=== PATIENT | female | born 1940 ===

== ENCOUNTER 2016-11-13 16:06 | Inpatient (IN) | payer MEDICARE, OTHER ==
--- NOTE | 2016-11-13 16:54 | RAD ---
HISTORY: routine COMPARISON: No prior. FINDINGS: LUNGS: Suspect minor bibasilar atelectasis PLEURA: No significant pleural effusion identified, no pneumothorax apparent. CARDIOVASCULAR: Heart size appears upper limits of normal OSSEOUS STRUCTURES: Minor multilevel degenerative spondylosis of the thoracic spine VISUALIZED UPPER ABDOMEN: Metallic clips right upper quadrant of the abdomen consistent with prior cholecystectomy OTHER FINDINGS: None. IMPRESSION: Suspect minor bibasilar atelectasis.
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
[2016-11-13 18:06] LABS: BASO # 0.1 K/uL (0.0-0.2); BASO % 0.7 % (0.0-2.0); EOS # 0.3 K/uL (0.0-0.7); EOS % 3.2 % (0.0-4.0); HEMOGLOBIN 13.8 g/dL (12.0-16.0); LYMPH # 2.4 K/uL (1.0-4.3); LYMPH % 27.9 % (20.0-40.0); MEAN CELL VOLUME 85.3 fl (81.0-99.0); MEAN CORPUSCULAR HEMOGLOBIN 27.7 pg (27.0-31.0); MEAN CORPUSCULAR HGB CONC 32.5 g/dL (33.0-37.0); MEAN PLATELET VOLUME 7.9 fl (7.2-11.7); MONO # 0.7 K/uL (0.0-0.8); MONO % 7.7 % (0.0-10.0); NEUT # 5.1 K/uL (1.8-7.0); NEUT % 60.5 % (50.0-75.0); RBC 4.97 Mil/uL (3.80-5.20); RED CELL DISTRIBUTION WIDTH 15.6 % (11.5-14.5); WHITE BLOOD COUNT 8.5 K/uL (4.8-10.8)
[2016-11-13 18:16] LABS: BARBITURATES, UR NEGATIVE (NEGATIVE); BENZODIAZEPINES, UR POSITIVE (NEGATIVE); OPIATES, UR NEGATIVE (NEGATIVE); PHENCYCLIDINE, UR NEGATIVE (NEGATIVE)
[2016-11-13 18:23] LABS: ALB/GLOB RATIO 1.1 (1.0-2.1); ALBUMIN 4.1 g/dL (3.5-5.0); ALT/SGPT 33 U/L (9-52); AST/SGOT 24 U/L (14-36); BLOOD UREA NITROGEN 14 mg/dl (7-17); CALCIUM 9.1 mg/dL (8.4-10.2); GFR AFRICAN-AMERICAN > 60; GFR NON-AFRICAN AMERICAN > 60; MAGNESIUM 2.1 MG/DL (1.6-2.3)
[2016-11-13 18:39] LABS: SALICYLATE < 1.0 mg/dl
[2016-11-13 18:42] LABS: ACETAMINOPHEN < 10.0 ug/ml (10.0-30.0)
[2016-11-13] MEDS ORDERED: Magnesium Hydroxide Susp 30 ml UD PO PRN (21:45)
[2016-11-13] MEDS ORDERED: Alum-Mag Hydrox-Simethicone Susp (30 mL) PO PRN (21:45)
[2016-11-13] MEDS ORDERED: IPRATROPIUM PO PRN (22:01)
[2016-11-13] MEDS ORDERED: DiphenhydrAMINE 50 mg/ml Inj IM PRN (22:04)
[2016-11-14 05:15] LABS: SQUAMOUS EPITHIAL 1 /hpf (0-5); URINE BACTERIA RARE (<OCC); URINE BILIRUBIN NEGATIVE (NEGATIVE); URINE BLOOD NEGATIVE (NEGATIVE); URINE CLARITY SLIGHTY-CLOUDY (Clear); URINE COLOR YELLOW (YELLOW); URINE GLUCOSE (UA) NEG (Normal); URINE LEUKOCYTE ESTERASE TRACE Leu/uL (Negative); URINE NITRATE NEGATIVE (NEGATIVE); URINE PROTEIN NEGATIVE (NEGATIVE); URINE UROBILINOGEN 0.2-1.0 mg/dL (0.2-1.0)
[2016-11-14 07:33] LABS: IRON 73 ug/dL (37-170)
[2016-11-14 07:44] LABS: % IRON SATURATION 25 % (20-55); TOTAL IRON BINDING CAPACITY 293 ug/dL (250-450)
[2016-11-14 07:51] LABS: T4 8.37 ug/dl (5.5-11.0)
[2016-11-14 08:09] LABS: FERRITIN 54.9 ng/mL
[2016-11-14] MEDS: Metoprolol Succinate 100 mg XL Tab PO SCH (08:14)
--- NOTE | 2016-11-14 09:28 | CARD ---
APPROVED REPORT EKG Measurement Heart [id number] <Conclusion> Sinus bradycardia Otherwise normal ECG
[2016-11-14 13:24] LABS: FOLATE 10.2 ng/mL
--- NOTE | 2016-11-14 13:57 | CP.PCM.CON ---
History of Present Illness - History of Present Illness History of Present Illness: 76 yo female with history of Dementia, HTN, Asthma and Depression admitted to psyche unit because of aggressive behaviour and suicidal ideation. Review of Systems - Review of Systems All systems: reviewed and no additional remarkable complaints except (aside from those mentioned above, 12 point system review were negative by me) Past Patient History - Tetanus Immunizations Tetanus Immunization: Unknown - Past Social History Smoking Status: Heavy Smoker > 10 Cigarettes Daily Alcohol: None Drugs: Denies Home Situation {Lives}: With Family - CARDIAC Hx Cardiac Disorders: No Hx Hypertension: Yes - PULMONARY Hx Asthma: Yes Hx Tuberculosis: No - NEUROLOGICAL Hx Alzheimer's Disease: Yes HX Cerebrovascular Accident: No Hx Seizures: No - RENAL Hx Chronic Kidney Disease: No - ENDOCRINE/METABOLIC Hx Endocrine Disorders: No - HEMATOLOGICAL/ONCOLOGICAL Hx Cancer: No Hx Human Immunodeficiency Virus (HIV): No - INTEGUMENTARY Hx Dermatological Problems: No - MUSCULOSKELETAL/RHEUMATOLOGICAL Hx Musculoskeletal Disorders: No Hx Arthritis: Yes Hx Falls: No - GASTROINTESTINAL Hx Gastrointestinal Disorders: No - GENITOURINARY/GYNECOLOGICAL Hx Sexually Transmitted Disorders: No - PSYCHIATRIC Hx Anxiety: Yes Hx Depression: Yes Hx Substance Use: No - SURGICAL HISTORY Hx Cholecystectomy: Yes - ANESTHESIA Hx Anesthesia: No Hx Anesthesia Reactions: No Hx Malignant Hyperthermia: No Has any member of the family had a problem w/ anesthesia?: No Meds Allergies/Adverse Reactions: Allergies Allergy/AdvReac Type Severity Reaction Status Date / Time Penicillins Allergy RASH Verified 06/30/16 15:23 - Medications Medications: Current Medications Acetaminophen (Tylenol 325mg Tab) 650 mg PO Q4 PRN PRN Reason: Pain, moderate (4-7) Al Hydrox/Mg Hydrox/Simethicone (Maalox Plus 30 Ml) 30 ml PO Q4 PRN PRN Reason: Dyspepsia Diphenhydramine HCl (Benadryl) 25 mg IM Q6 PRN PRN Reason: ANXIETY/AGITATION Diphenhydramine HCl (Benadryl) 25 mg PO Q6 PRN PRN Reason: ANXIETY/AGITATION Home Med (Ipratropium [Atrovent Hfa]) 200 puff PO PRN PRN PRN Reason: Wheezing Lorazepam (Ativan) 0.5 mg PO Q6 PRN PRN Reason: Anixety/Agitation Stop: 11/27/16 21:46 Last Admin: 11/14/16 12:52 Dose: 0.5 mg Lorazepam (Ativan) 0.5 mg PO HS PRN PRN Reason: Insomnia Stop: 11/27/16 21:46 Magnesium Hydroxide (Milk Of Magnesia) 30 ml PO HS PRN PRN Reason: Constipation Metoprolol Succinate (Toprol Xl) 100 mg PO DAILY [facility] Last Admin: 11/14/16 08:14 Dose: 100 mg Nicotine (Nicoderm Cq) 1 patch TD DAILY [facility] Last Admin: 11/14/16 08:13 Dose: 1 patch Physical Exam - Constitutional Appears: No Acute Distress - Head Exam Head Exam: ATRAUMATIC - Eye Exam Eye Exam: absent: Scleral icterus - ENT Exam ENT Exam: Mucous Membranes Moist - Neck Exam Neck exam: Negative for: Meningismus - Respiratory Exam Respiratory Exam: absent: Rhonchi, Wheezes, Respiratory Distress - Cardiovascular Exam Cardiovascular Exam: REGULAR RHYTHM, +S1, +S2 - GI/Abdominal Exam GI & Abdominal Exam: Soft. absent: Tenderness - Rectal Exam Rectal Exam: Deferred - Neurological Exam Neurological exam: Alert, Oriented x3 - Psychiatric Exam Psychiatric exam: Depressed - Skin Skin Exam: Dry, Intact Results - Vital Signs Recent Vital Signs: Last Vital Signs Temp 97.1 F L 11/14/16 05:26 Pulse 50 L 11/14/16 08:14 Resp 18 11/14/16 05:26 BP 137/63 11/14/16 08:14 Pulse Ox 95 11/13/16 21:51 - Labs Result Diagrams: 11/13/16 17:50 11/13/16 17:50 Labs: Laboratory Results - last 24 hr 11/14/16 11/14/16 11/14/16 05:02 07:02 07:02 Hemoglobin A1c 6.3 Iron TIBC % Saturation Ferritin 54.9 Triglycerides 154 H Cholesterol 225 H LDL Cholesterol Direct 156 H HDL Cholesterol 46 Vitamin B12 375 Folate 10.2 Free T4 Thyroxine (T4) 8.37 TSH 3rd Generation 1.70 Urine Color Yellow Urine Clarity Slighty-cloudy Urine pH 6.0 Ur Specific Driscoll 1.011 Urine Protein Negative Urine Glucose (UA) Neg Urine Ketones Negative Urine Blood Negative Urine Nitrate Negative Urine Bilirubin Negative Urine Urobilinogen 0.2-1.0 Ur Leukocyte Esterase Trace Urine RBC (Auto) 1 Urine Microscopic WBC 3 Ur Squamous Epith Cells 1 Urine Bacteria Rare 11/14/16 11/14/16 07:02 07:02 Hemoglobin A1c Iron 73 TIBC 293 % Saturation 25 Ferritin Triglycerides Cholesterol LDL Cholesterol Direct HDL Cholesterol Vitamin B12 Folate Free T4 1.14 Thyroxine (T4) TSH 3rd Generation Urine Color Urine Clarity Urine pH Ur Specific Driscoll Urine Protein Urine Glucose (UA) Urine Ketones Urine Blood Urine Nitrate Urine Bilirubin Urine Urobilinogen Ur Leukocyte Esterase Urine RBC (Auto) Urine Microscopic WBC Ur Squamous Epith Cells Urine Bacteria Assessment & Plan (1) Suicidal ideations Status: Acute Comment: psyche is managing (2) Asthma with COPD Status: Chronic Comment: asymptomatic. continue Advair and Atrovent. Duoneb q 4hrs prn for SOB (3) HTN (hypertension) Status: Chronic Comment: BP controlled. continue Metoprolol
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
[2016-11-15] MEDS: Fluticasone-Salmeterol 250-50mcg Diskus INH SCH ×3 (01:48→21:27)
[2016-11-15] MEDS: Metoprolol Succinate 100 mg XL Tab PO SCH (09:00)
[2016-11-15] MEDS ORDERED: Ipratropium 0.02% Inhal Soln (0.5 mg/2.5 ml) UD IH PRN (16:15)
--- NOTE | 2016-11-15 16:41 | PCM.PYCHPN ---
Psychiatric Progress Note - Psychiatric Progress Note Patient seen today, length of contact: chart reviewed case discussed with team 35 min Patient Chief Complaint: get nervous so what Problems Identified/Issues Discussed: alteration in mood, alteration in cognition, alteration in self care Medical Problems: per chart Diagnostic Results: per psychiatry per medicine per nursing per social work per recreational therapy DSM 5 Symptoms Update: irritability, changes in sleep, changes in appetite Medication Change: Yes (stop lexapro, start mirtazepine7.5mghs,stop hydroxyzine pamoate,[id number] ) Medical Record Reviewed: Yes Mental Status Examination - Cognitive Function Orientation: Person Attention: Poor Concentration: Poor Association: Loose Fund of Knowledge: Poor Decription of patient's judgement and insights: impaired - Mood Mood: Depressed, Anxious - Affect Affect: Constricted - Speech Additional comments: varied - Formal Thought Process Formal Thought Process: Paranoia, Flight of ideas - Homicidal Ideation Homicidal Ideation: Yes Goal/Treatment Plan - Goal/Treatment Plan Need for Continued Stay: Remain at risks for inpatient hospitalization, Severe functional impairment Progress Toward Problem(s) and Goals/Treatment Plan: inpt milieu vital signs and clinical observation per clinical status: pt is to remain on 1 to 1 for safety milieu therapy case discussed with dr meehan: remeron 7.5mg po hs, stop lexapro 5mg, Dr. Meehan suggested possible sub acute rehab at [facility] Case discussed with POA: Daughter/pinky access to [facility] speaking staff prn discharge planning in progress Estimated Date of D/C: 11/22/16 - Smoking Cessation Smoking Cessation Initiated: Yes
[2016-11-16] MEDS: Fluticasone-Salmeterol 250-50mcg Diskus INH SCH ×2 (09:38→21:06)
[2016-11-16] MEDS: Metoprolol Succinate 100 mg XL Tab PO SCH (09:39)
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
[2016-11-17 06:06] VITALS: O2SAT 98
[2016-11-17] MEDS: Metoprolol Succinate 100 mg XL Tab PO SCH (08:49)
[2016-11-17] MEDS: Fluticasone-Salmeterol 250-50mcg Diskus INH SCH ×2 (08:50→21:04)
--- NOTE | 2016-11-17 13:12 | PCM.PYCHPN ---
Psychiatric Progress Note - Psychiatric Progress Note Patient seen today, length of contact: discussed with team Patient Chief Complaint: no c/o Problems Identified/Issues Discussed: pt with no acute changes overnight. no c/o medication side effects. she is confused. Medication Change: No Medical Record Reviewed: Yes Mental Status Examination - Cognitive Function Orientation: Person, Place Attention: Poor Concentration: Poor Association: Loose Fund of Knowledge: Poor - Mood Mood: Depressed, Anxious - Affect Affect: Constricted - Formal Thought Process Formal Thought Process: Paranoia, Flight of ideas - Suicidal Ideation Suicidal Ideation: No - Homicidal Ideation Homicidal Ideation: No Goal/Treatment Plan - Goal/Treatment Plan Need for Continued Stay: Remain at risks for inpatient hospitalization, Severe functional impairment Progress Toward Problem(s) and Goals/Treatment Plan: dementia will continue current treatment per primary team Estimated Date of D/C: 11/22/16 - Smoking Cessation Smoking Cessation Initiated: No
[2016-11-18] MEDS: Fluticasone-Salmeterol 250-50mcg Diskus INH SCH ×2 (08:50→21:01)
[2016-11-18] MEDS: Metoprolol Succinate 100 mg XL Tab PO SCH (08:51)
--- NOTE | 2016-11-18 10:44 | PCM.PYCHPN ---
Psychiatric Progress Note - Psychiatric Progress Note Patient seen today, length of contact: discussed with team Patient Chief Complaint: im not in the hospital Problems Identified/Issues Discussed: pt with no acute changes overnight. she states she doesn't sleep. she is on 1:1 for safety. no c/o medication side effects. she is confused. Medication Change: Yes Medical Record Reviewed: Yes Mental Status Examination - Cognitive Function Orientation: Person, Place Memory: Intact Attention: Poor Concentration: Poor Association: Loose Fund of Knowledge: Poor Decription of patient's judgement and insights: variable - Mood Mood: Depressed, Anxious - Affect Affect: Constricted - Formal Thought Process Formal Thought Process: Paranoia, Flight of ideas - Suicidal Ideation Suicidal Ideation: No - Homicidal Ideation Homicidal Ideation: No Goal/Treatment Plan - Goal/Treatment Plan Need for Continued Stay: Remain at risks for inpatient hospitalization, Severe functional impairment Progress Toward Problem(s) and Goals/Treatment Plan: dementia will continue current treatment per primary team will inc. remeron to address insomnia Estimated Date of D/C: 11/22/16
[2016-11-19] MEDS: Fluticasone-Salmeterol 250-50mcg Diskus INH SCH ×2 (08:11→21:01)
[2016-11-19] MEDS: Metoprolol Succinate 100 mg XL Tab PO SCH (08:14)
--- NOTE | 2016-11-19 12:22 | PCM.PYCHPN ---
Psychiatric Progress Note - Psychiatric Progress Note Patient seen today, length of contact: discussed with team Patient Chief Complaint: its ok, i'm just here Problems Identified/Issues Discussed: pt with no complaints currently. she states she doesn't sleep, but did sleep 4 hours last night.. she is on 1:1 for safety. no c/o medication side effects. she is confused. Medication Change: Yes Medical Record Reviewed: Yes Mental Status Examination - Cognitive Function Orientation: Person, Place Memory: Intact Attention: Poor Concentration: Poor Association: Loose Fund of Knowledge: Poor Decription of patient's judgement and insights: variable - Mood Mood: Depressed, Anxious - Affect Affect: Constricted - Formal Thought Process Formal Thought Process: Paranoia, Flight of ideas - Suicidal Ideation Suicidal Ideation: No - Homicidal Ideation Homicidal Ideation: No Goal/Treatment Plan - Goal/Treatment Plan Need for Continued Stay: Remain at risks for inpatient hospitalization, Severe functional impairment Progress Toward Problem(s) and Goals/Treatment Plan: dementia will continue current treatment per primary team will continue remeron to address insomnia- team may increase next week Estimated Date of D/C: 11/22/16
[2016-11-20] MEDS: Metoprolol Succinate 100 mg XL Tab PO SCH (08:59)
--- NOTE | 2016-11-20 10:50 | PCM.PYCHPN ---
Psychiatric Progress Note - Psychiatric Progress Note Patient seen today, length of contact: DUPLICATE NOTE ENTERED IN ERROR- SEE OTHER NOTE Medication Change: Yes Medical Record Reviewed: Yes Mental Status Examination - Cognitive Function Orientation: Person, Place Memory: Intact Attention: Poor Concentration: Poor Association: Loose Fund of Knowledge: Poor - Mood Mood: Depressed, Anxious - Affect Affect: Constricted - Formal Thought Process Formal Thought Process: Paranoia, Flight of ideas - Suicidal Ideation Suicidal Ideation: No - Homicidal Ideation Homicidal Ideation: No Goal/Treatment Plan - Goal/Treatment Plan Need for Continued Stay: Remain at risks for inpatient hospitalization, Severe functional impairment Estimated Date of D/C: 11/22/16
--- NOTE | 2016-11-20 10:56 | PCM.PYCHPN ---
Psychiatric Progress Note - Psychiatric Progress Note Patient seen today, length of contact: Patient evaluated, case discussed with team, chart reviewed Patient Chief Complaint: "I'm okay" Problems Identified/Issues Discussed: Patient is disoriented to self/location. She does not know why she is in the hospital. She continues to have intermittent periods of mood lability/ irritability. Planer Hand called Marta BUSH [phone], and discussed starting Depakote for mood stabilization. R/b/se reviewed. NO AH/VH/SI/HI. Medication Change: Yes (Start Depakote 125 mg PO BID) Medical Record Reviewed: Yes Mental Status Examination - Cognitive Function Orientation: Person, Place Memory: Intact Attention: Poor Concentration: Poor Association: Loose Fund of Knowledge: Poor Decription of patient's judgement and insights: Poor I/J - Mood Mood: Depressed - Affect Affect: Constricted - Formal Thought Process Formal Thought Process: Loosening of associations Psychotic Thoughts and Behaviors: Denies acute psychosis - Suicidal Ideation Suicidal Ideation: No - Homicidal Ideation Homicidal Ideation: No Goal/Treatment Plan - Goal/Treatment Plan Need for Continued Stay: Remain at risks for inpatient hospitalization, Severe functional impairment Progress Toward Problem(s) and Goals/Treatment Plan: Dementia w/ Behavioral Disturbances; Mood Disorder NOS -Continue Remeron 15 mg PO HS -Start Depakote 125 mg PO BID -Disposition planning -Individual and group therapy -Case discussed with ELEAZAR Estimated Date of D/C: 11/23/16
[2016-11-20] MEDS: Divalproex 125 mg Sprinkle Capsule PO SCH ×2 (13:25→18:10)
[2016-11-20] MEDS: Fluticasone-Salmeterol 100-50mcg Diskus IH SCH (21:29)
[2016-11-21] MEDS: Metoprolol Succinate 100 mg XL Tab PO SCH (09:11)
[2016-11-21] MEDS: Divalproex 125 mg Sprinkle Capsule PO SCH ×2 (09:11→16:56)
[2016-11-21] MEDS: Fluticasone-Salmeterol 100-50mcg Diskus IH SCH ×2 (09:13→21:09)
--- NOTE | 2016-11-21 09:45 | PCM.PYCHPN ---
Psychiatric Progress Note - Psychiatric Progress Note Patient seen today, length of contact: Patient evaluated, case discussed with team, chart reviewed, 35 min Patient Chief Complaint: "I'm okay" Problems Identified/Issues Discussed: She has poor insight into her dementia, despite the junior underwriter explaining her diagnosis with the patient. She does not know why she is in the hospital. She continues to have intermittent periods of mood lability/irritability, but is redirectable. No adverse effects to Depakote noted. NO AH/VH/SI/HI. Medication Change: No Medical Record Reviewed: Yes Consults ordered or reviewed: Physical therapy evaluation ordered Mental Status Examination - Cognitive Function Orientation: Person, Place Memory: Intact Attention: Poor Concentration: Poor Association: Loose Fund of Knowledge: Poor Decription of patient's judgement and insights: Poor I/J - Mood Mood: Depressed - Affect Affect: Constricted - Speech Speech: Appropriate - Formal Thought Process Formal Thought Process: Loosening of associations Psychotic Thoughts and Behaviors: NO AH/VH/paranoia - Suicidal Ideation Suicidal Ideation: No - Homicidal Ideation Homicidal Ideation: No Goal/Treatment Plan - Goal/Treatment Plan Need for Continued Stay: Remain at risks for inpatient hospitalization, Severe functional impairment Progress Toward Problem(s) and Goals/Treatment Plan: Dementia w/ Behavioral Disturbances; Mood Disorder NOS -Continue Remeron 15 mg PO HS -Continue Depakote 125 mg PO BID -Disposition planning -Individual and group therapy -Case discussed with POBaljinder Estimated Date of D/C: 11/23/16
[2016-11-22] MEDS: Divalproex 125 mg Sprinkle Capsule PO SCH ×3 (08:17→16:39)
[2016-11-22] MEDS: Fluticasone-Salmeterol 100-50mcg Diskus IH SCH ×2 (08:17→21:12)
[2016-11-22] MEDS: Metoprolol Succinate 100 mg XL Tab PO SCH (08:18)
--- NOTE | 2016-11-22 08:50 | PCM.PYCHPN ---
Psychiatric Progress Note - Psychiatric Progress Note Patient seen today, length of contact: Patient evaluated, case discussed with team, chart reviewed, 35 min Patient Chief Complaint: "I'm okay" Problems Identified/Issues Discussed: She has poor insight into her dementia. She continues to be irritable towards staff, restless and pacing the hallways at times. She does not know why she is in the hospital. She is not currently threatening or violent and is redirectable. No adverse effects to Depakote noted. NO AH/VH/SI/HI. Medication Change: Yes (Increase Depakote to 250 mg PO BID) Medical Record Reviewed: Yes Mental Status Examination - Cognitive Function Orientation: Person, Place Memory: Intact Attention: Poor Concentration: Poor Association: Loose Fund of Knowledge: Poor Decription of patient's judgement and insights: Poor I/J - Mood Mood: Depressed - Affect Affect: Constricted - Speech Speech: Appropriate - Formal Thought Process Formal Thought Process: Loosening of associations Psychotic Thoughts and Behaviors: NO AH/VH/paranoia - Suicidal Ideation Suicidal Ideation: No - Homicidal Ideation Homicidal Ideation: No Goal/Treatment Plan - Goal/Treatment Plan Need for Continued Stay: Remain at risks for inpatient hospitalization, Severe functional impairment Progress Toward Problem(s) and Goals/Treatment Plan: Dementia w/ Behavioral Disturbances; Mood Disorder NOS -Continue Remeron 15 mg PO HS -Increase Depakote to 250 mg PO BID -Disposition planning -Individual and group therapy -Case discussed with POA Estimated Date of D/C: 11/24/16
--- NOTE | 2016-11-23 07:51 | PCM.PYCHPN ---
Psychiatric Progress Note - Psychiatric Progress Note Patient seen today, length of contact: Patient evaluated, case discussed with team, chart reviewed, 35 min Patient Chief Complaint: "I'm okay" Problems Identified/Issues Discussed: Patient has been in good behavioral control. No significant events. No agitation or aggression. Patient denies depression or anxiety. She is calm, cooperative and spends most of her day engaged in word puzzles. Patient has poor insight into her dementia and does not understand why she is in the hospital. No adverse effects to Depakote noted. NO AH/VH/SI/HI. Medication Change: No Medical Record Reviewed: Yes Mental Status Examination - Cognitive Function Orientation: Person, Place Memory: Intact Attention: Poor Concentration: Poor Association: Loose Fund of Knowledge: Poor Decription of patient's judgement and insights: Poor I/J - Mood Mood: Neutral - Affect Affect: Constricted - Speech Speech: Appropriate - Formal Thought Process Formal Thought Process: Loosening of associations Psychotic Thoughts and Behaviors: NO AH/VH/paranoia - Suicidal Ideation Suicidal Ideation: No - Homicidal Ideation Homicidal Ideation: No Goal/Treatment Plan - Goal/Treatment Plan Need for Continued Stay: Severe functional impairment Progress Toward Problem(s) and Goals/Treatment Plan: Dementia w/ Behavioral Disturbances; Mood Disorder NOS; Patient is psychiatrically stable for referral to prison. -Continue Remeron 15 mg PO HS -Continue Depakote 250 mg PO BID; Check VPA tomorrow -Disposition planning- referral to prison -Individual and group therapy -Case discussed with POA Estimated Date of D/C: 11/24/16 - Smoking Cessation Smoking Cessation Initiated: Yes
[2016-11-23] MEDS: Divalproex 125 mg Sprinkle Capsule PO SCH ×2 (09:05→16:48)
[2016-11-23] MEDS: NICOTINE 2 MG GUM PO PRN (09:05)
[2016-11-23] MEDS: Fluticasone-Salmeterol 100-50mcg Diskus IH SCH ×2 (09:05→21:09)
[2016-11-23] MEDS: Metoprolol Succinate 100 mg XL Tab PO SCH (09:06)
--- NOTE | 2016-11-24 08:27 | PCM.PYCHPN ---
Psychiatric Progress Note - Psychiatric Progress Note Patient seen today, length of contact: Patient evaluated, case discussed with team, chart reviewed, 35 min Patient Chief Complaint: "I'm okay" Problems Identified/Issues Discussed: No significant events. Patient has been in good behavioral control. No agitation or aggression. Patient denies depression or anxiety. Patient has poor insight into her dementia and does not understand why she is in the hospital. No adverse effects to Depakote noted. NO AH/VH/SI/HI. Diagnostic Results: VPA 38.5 on 11/24/16 Medication Change: No Medical Record Reviewed: Yes Mental Status Examination - Cognitive Function Orientation: Person, Place Memory: Intact Attention: Poor Concentration: Poor Association: Loose Fund of Knowledge: Poor Decription of patient's judgement and insights: Poor I/J - Mood Mood: Neutral - Affect Affect: Constricted - Speech Speech: Appropriate - Formal Thought Process Formal Thought Process: Loosening of associations Psychotic Thoughts and Behaviors: NO AH/VH/paranoia - Suicidal Ideation Suicidal Ideation: No - Homicidal Ideation Homicidal Ideation: No Goal/Treatment Plan - Goal/Treatment Plan Need for Continued Stay: Severe functional impairment Progress Toward Problem(s) and Goals/Treatment Plan: Dementia w/ Behavioral Disturbances; Mood Disorder NOS; Patient is psychiatrically stable for referral to half-way. -Continue Remeron 15 mg PO HS -Continue Depakote 250 mg PO BID; VPA 38.5 on 11/24/16 -Disposition planning- referral to half-way -Individual and group therapy -Case discussed with POA Estimated Date of D/C: 11/27/16 - Smoking Cessation Smoking Cessation Initiated: Yes
[2016-11-24] MEDS: Fluticasone-Salmeterol 100-50mcg Diskus IH SCH ×2 (08:48→21:32)
[2016-11-24] MEDS: Divalproex 125 mg Sprinkle Capsule PO SCH ×2 (08:49→17:00)
[2016-11-24] MEDS: Metoprolol Succinate 100 mg XL Tab PO SCH (08:53)
[2016-11-24] MEDS: NICOTINE 2 MG GUM PO PRN (09:00)
--- NOTE | 2016-11-25 08:32 | PCM.PYCHPN ---
Psychiatric Progress Note - Psychiatric Progress Note Patient seen today, length of contact: Patient evaluated, case discussed with team, chart reviewed, 35 min Patient Chief Complaint: "I'm okay" Problems Identified/Issues Discussed: No significant events overnight. Patient has been in good behavioral control. No agitation or aggression. Patient denies depression or anxiety. Patient has poor insight into her dementia and does not understand why she is in the hospital. No adverse effects to Depakote noted. NO AH/VH/SI/HI. Diagnostic Results: VPA 38.5 on 11/24/16 Medication Change: No Medical Record Reviewed: Yes Mental Status Examination - Cognitive Function Orientation: Person, Place Memory: Intact Attention: Poor Concentration: Poor Association: Loose Fund of Knowledge: Poor Decription of patient's judgement and insights: Poor I/J - Mood Mood: Neutral - Affect Affect: Constricted - Speech Speech: Appropriate - Formal Thought Process Formal Thought Process: Loosening of associations Psychotic Thoughts and Behaviors: NO AH/VH/paranoia - Suicidal Ideation Suicidal Ideation: No - Homicidal Ideation Homicidal Ideation: No Goal/Treatment Plan - Goal/Treatment Plan Need for Continued Stay: Severe functional impairment Progress Toward Problem(s) and Goals/Treatment Plan: Dementia w/ Behavioral Disturbances; Mood Disorder NOS; Patient is psychiatrically stable for referral to [facility]. -Continue Remeron 15 mg PO HS -Continue Depakote 250 mg PO BID; VPA 38.5 on 11/24/16 -Disposition planning- referral to [facility] -Individual and group therapy -Case discussed with POA Estimated Date of D/C: 11/27/16
[2016-11-25] MEDS: Divalproex 125 mg Sprinkle Capsule PO SCH ×2 (09:14→16:48)
[2016-11-25] MEDS: Fluticasone-Salmeterol 100-50mcg Diskus IH SCH ×2 (09:14→21:00)
[2016-11-25] MEDS: Metoprolol Succinate 100 mg XL Tab PO SCH (09:16)
--- NOTE | 2016-11-25 19:22 | CP.PCM.HP ---
History of Present Illness - History of Present Illness History of Present Illness: 76 y/o female with h/o htn, asthma,dementia and htn admitted to psych unit due to suicidal thoughts and aggressive behavior Present on Admission - Present on Admission Any Indicators Present on Admission: Yes Review of Systems - Review of Systems All systems: reviewed and no additional remarkable complaints except - Constitutional Constitutional: As Per HPI - EENT Eyes: As Per HPI Ears: As Per HPI Nose/Mouth/Throat: As Per HPI - Breasts Breasts: As Per HPI - Cardiovascular Cardiovascular: As Per HPI - Respiratory Respiratory: As Per HPI - Gastrointestinal Gastrointestinal: As Per HPI - Integumentary Integumentary: As Per HPI. absent: Acne, Alopecia, Bleeding Lesions, Change in Hair, Change in Nails, Change in Pigmentation, Changing Lesions, Dry Skin, Erythema, Furuncle, Hirsutism, Lesions, New Lesions, Non-Healing Lesions, Photosensitivity, Pruritus, Rash, Skin Pain, Skin Ulcer, Sores, Striae, Swelling , Unusual Bruising, Wounds, Jaundice, Other - Neurological Neurological: As Per HPI. absent: Abnormal Gait, Abnormal Hearing, Abnormal Movements, Abnormal Speech, Behavioral Changes, Burning Sensations, Confusion, Convulsions, Disequilibrium, Dizziness, Numbness, Focal Weakness, Frequent Falls , Headaches, Lack of Coordination, Loss of Vision, Memory Loss, Paresthesias, Radicular Pain, Restless Legs, Sensory Deficit, Syncope, Tingling, Tremor, Vertigo, Weakness, Other Visual Disturbances, Other Past Patient History - Infectious Disease Hx of Infectious Diseases: None - Tetanus Immunizations Tetanus Immunization: Unknown - Past Medical History & Family History Past Medical History?: Yes - Past Social History Smoking Status: Heavy Smoker > 10 Cigarettes Daily Alcohol: None Drugs: Denies Home Situation {Lives}: With Family - CARDIAC Hx Cardiac Disorders: No Hx Hypertension: Yes - PULMONARY Hx Asthma: Yes Hx Tuberculosis: No - NEUROLOGICAL Hx Alzheimer's Disease: Yes HX Cerebrovascular Accident: No Hx Seizures: No - RENAL Hx Chronic Kidney Disease: No - ENDOCRINE/METABOLIC Hx Endocrine Disorders: No - HEMATOLOGICAL/ONCOLOGICAL Hx Cancer: No Hx Human Immunodeficiency Virus (HIV): No - INTEGUMENTARY Hx Dermatological Problems: No - MUSCULOSKELETAL/RHEUMATOLOGICAL Hx Musculoskeletal Disorders: No Hx Arthritis: Yes Hx Falls: No - GASTROINTESTINAL Hx Gastrointestinal Disorders: No - GENITOURINARY/GYNECOLOGICAL Hx Sexually Transmitted Disorders: No - PSYCHIATRIC Hx Anxiety: Yes Hx Depression: Yes Hx Substance Use: No - SURGICAL HISTORY Hx Cholecystectomy: Yes - ANESTHESIA Hx Anesthesia: No Hx Anesthesia Reactions: No Hx Malignant Hyperthermia: No Has any member of the family had a problem w/ anesthesia?: No Meds Home Medications: Home Medication List Medication Instructions Recorded Confirmed Type Fluticasone/Salmeterol [Advair 1 each IH DAILY #1 blst.w.dev 11/20/16 Rx 250-50 Diskus] Allergies/Adverse Reactions: Allergies Allergy/AdvReac Type Severity Reaction Status Date / Time Penicillins Allergy RASH Verified 06/30/16 15:23 Physical Exam - Constitutional Appears: Well - Head Exam Head Exam: ATRAUMATIC, NORMAL INSPECTION - Eye Exam Eye Exam: Normal appearance Pupil Exam: NORMAL ACCOMODATION - ENT Exam ENT Exam: Mucous Membranes Moist - Neck Exam Neck exam: Positive for: Full Rom - Respiratory Exam Respiratory Exam: Clear to Auscultation Bilateral, NORMAL BREATHING PATTERN - Cardiovascular Exam Cardiovascular Exam: REGULAR RHYTHM - GI/Abdominal Exam GI & Abdominal Exam: Normal Bowel Sounds, Soft - Extremities Exam Extremities exam: Positive for: normal inspection Results - Vital Signs Recent Vital Signs: Last Vital Signs Temp 97.1 F L 11/25/16 15:44 Pulse 63 11/25/16 15:44 Resp 19 11/25/16 15:44 BP 167/72 H 11/25/16 15:44 Pulse Ox 98 11/17/16 06:00 - Labs Result Diagrams: 11/13/16 17:50 11/13/16 17:50 Assessment & Plan - Assessment and Plan (Free Text) Assessment: 76 y/o female with history of htn, asthma, dementia, depression 1. HTN: controlled cont same meds 2. Asthma cont nebs pt stabole 3. dementia/depression cont same treatment.
[2016-11-26] MEDS: Fluticasone-Salmeterol 100-50mcg Diskus IH SCH ×2 (08:44→21:13)
--- NOTE | 2016-11-26 08:44 | PCM.PYCHPN ---
Psychiatric Progress Note - Psychiatric Progress Note Patient seen today, length of contact: Patient evaluated, case discussed with team, chart reviewed, 35 min Patient Chief Complaint: "I'm okay" Problems Identified/Issues Discussed: No significant events. Patient has been in good behavioral control. No agitation or aggression. Patient denies depression or anxiety. Patient has poor insight into her dementia and does not understand why she is in the hospital. No adverse effects to Depakote noted. NO AH/VH/SI/HI. Diagnostic Results: VPA 38.5 on 11/24/16 Medication Change: No Medical Record Reviewed: Yes Mental Status Examination - Cognitive Function Orientation: Person, Place Memory: Intact Attention: Poor Concentration: Poor Association: Loose Fund of Knowledge: Poor Decription of patient's judgement and insights: Poor I/J - Mood Mood: Neutral - Affect Affect: Constricted - Speech Speech: Appropriate - Formal Thought Process Formal Thought Process: Loosening of associations Psychotic Thoughts and Behaviors: NO AH/VH/paranoia - Suicidal Ideation Suicidal Ideation: No - Homicidal Ideation Homicidal Ideation: No Goal/Treatment Plan - Goal/Treatment Plan Need for Continued Stay: Severe functional impairment Progress Toward Problem(s) and Goals/Treatment Plan: Dementia w/ Behavioral Disturbances; Mood Disorder NOS; Patient is psychiatrically stable for referral to [facility]. -Continue Remeron 15 mg PO HS -Continue Depakote 250 mg PO BID; VPA 38.5 on 11/24/16 -Disposition planning- referral to [facility] -Individual and group therapy -Case discussed with POA Estimated Date of D/C: 11/27/16 - Smoking Cessation Smoking Cessation Initiated: Yes
[2016-11-26] MEDS: Divalproex 125 mg Sprinkle Capsule PO SCH ×2 (08:45→16:24)
[2016-11-26] MEDS: Metoprolol Succinate 100 mg XL Tab PO SCH (08:47)
--- NOTE | 2016-11-27 08:29 | CP.PCM.PN ---
Subjective - Date & Time of Evaluation Date of Evaluation: 11/27/16 Time of Evaluation: 08:28 - Subjective Subjective: no complaints/distress, no f/c, n/v/d for pepper placement today vs noted Objective - Vital Signs/Intake and Output Vital Signs (last 24 hours): Temp Pulse Resp BP Pulse Ox 97.3 F L 53 L 18 139/75 98 11/27/16 05:51 11/27/16 05:51 11/27/16 05:51 11/27/16 05:51 11/17/16 06:00 - Medications Medications: Current Medications Acetaminophen (Tylenol 325mg Tab) 650 mg PO Q4 PRN PRN Reason: Pain, moderate (4-7) Last Admin: 11/26/16 14:30 Dose: 650 mg Al Hydrox/Mg Hydrox/Simethicone (Maalox Plus 30 Ml) 30 ml PO Q4 PRN PRN Reason: Dyspepsia Diphenhydramine HCl (Benadryl) 25 mg IM Q6 PRN PRN Reason: ANXIETY/AGITATION Diphenhydramine HCl (Benadryl) 25 mg PO Q6 PRN PRN Reason: ANXIETY/AGITATION Last Admin: 11/26/16 14:30 Dose: 25 mg Divalproex Sodium (Depakote Sprinkles) 250 mg PO BID [facility] Last Admin: 11/26/16 16:24 Dose: 250 mg Donepezil HCl (Aricept) 10 mg PO HS [facility] Last Admin: 11/26/16 21:14 Dose: 10 mg Ipratropium [place] (Atrovent) 0.5 mg IH RQ6 PRN PRN Reason: Cough and congestion Magnesium Hydroxide (Milk Of Magnesia) 30 ml PO HS PRN PRN Reason: Constipation Metoprolol Succinate (Toprol Xl) 100 mg PO DAILY [facility] Last Admin: 11/26/16 08:47 Dose: 100 mg Mirtazapine (Remeron) 15 mg PO HS [facility] Last Admin: 11/26/16 21:14 Dose: 15 mg Nicotine (Nicoderm Cq) 1 patch TD DAILY [facility] Last Admin: 11/26/16 08:47 Dose: 1 patch Nicotine Polacrilex (Nicorette Gum) 2 mg PO Q4 PRN PRN Reason: URGE TO SMOKE Last Admin: 11/24/16 09:00 Dose: 2 mg Fluticasone/Salmeterol (Advair Diskus 100/50) 1 puff IH Q12 [facility] Last Admin: 11/26/16 21:13 Dose: 1 puff - Constitutional Appears: Well, Non-toxic, No Acute Distress - Head Exam Head Exam: ATRAUMATIC, NORMAL INSPECTION, NORMOCEPHALIC - Eye Exam Eye Exam: EOMI, Normal appearance, PERRL Pupil Exam: NORMAL ACCOMODATION, PERRL - ENT Exam ENT Exam: Mucous Membranes Moist, Normal Exam - Neck Exam Neck Exam: Full ROM, Normal Inspection. absent: Lymphadenopathy - Respiratory Exam Respiratory Exam: Clear to Ausculation Bilateral, NORMAL BREATHING PATTERN - Cardiovascular Exam Cardiovascular Exam: REGULAR RHYTHM, RRR, +S1, +S2. absent: Murmur - GI/Abdominal Exam GI & Abdominal Exam: Soft, Normal Bowel Sounds. absent: Tenderness - Extremities Exam Extremities Exam: Full ROM, Normal Capillary Refill, Normal Inspection. absent : Joint Swelling, Pedal Edema - Back Exam Back Exam: NORMAL INSPECTION - Neurological Exam Neurological Exam: Alert, Awake, CN II-XII Intact, Normal Gait, Oriented x3 - Psychiatric Exam Psychiatric exam: Normal Affect, Normal Mood - Skin Skin Exam: Dry, Intact, Normal Color, Warm Assessment and Plan - Assessment and Plan (Free Text) Assessment: 1. HTN: controlled cont same meds 2. Asthma cont nebs pt stabole 3. dementia/depression cont same treatment psych meds, interventions, therapies dc to pepper as per psych team
[2016-11-27] MEDS: Metoprolol Succinate 100 mg XL Tab PO SCH (08:54)
[2016-11-27] MEDS: Fluticasone-Salmeterol 100-50mcg Diskus IH SCH ×2 (08:55→21:07)
[2016-11-27] MEDS: Divalproex 125 mg Sprinkle Capsule PO SCH ×2 (08:55→16:45)
--- NOTE | 2016-11-27 09:36 | PCM.PYCHPN ---
Psychiatric Progress Note - Psychiatric Progress Note Patient seen today, length of contact: Patient evaluated, case discussed with team, chart reviewed, 35 min Patient Chief Complaint: "I'm okay" Problems Identified/Issues Discussed: No significant events overnight. Patient denies depression or anxiety. Patient has poor insight into her dementia and does not understand why she is in the hospital. No adverse effects to Depakote noted. NO AH/VH/SI/HI. Diagnostic Results: VPA 38.5 on 11/24/16 Medication Change: No Medical Record Reviewed: Yes Mental Status Examination - Cognitive Function Orientation: Person, Place Memory: Intact Attention: Poor Concentration: Poor Association: Loose Fund of Knowledge: Poor Decription of patient's judgement and insights: Poor I/J - Mood Mood: Neutral - Affect Affect: Constricted - Speech Speech: Appropriate - Formal Thought Process Formal Thought Process: Loosening of associations Psychotic Thoughts and Behaviors: NO AH/VH/paranoia - Suicidal Ideation Suicidal Ideation: No - Homicidal Ideation Homicidal Ideation: No Goal/Treatment Plan - Goal/Treatment Plan Need for Continued Stay: Severe functional impairment Progress Toward Problem(s) and Goals/Treatment Plan: Dementia w/ Behavioral Disturbances; Mood Disorder NOS; pending residential referral. -Continue Remeron 15 mg PO HS -Continue Depakote 250 mg PO BID; VPA 38.5 on 11/24/16 -Disposition planning- referral to residential -Individual and group therapy -Case discussed with POA Estimated Date of D/C: 11/30/16 - Smoking Cessation Smoking Cessation Initiated: Yes
[2016-11-28 06:25] VITALS: TEMP 97.7
--- NOTE | 2016-11-28 08:46 | PCM.PYCHPN ---
Psychiatric Progress Note - Psychiatric Progress Note Patient seen today, length of contact: Patient evaluated, case discussed with team, chart reviewed, 35 min Patient Chief Complaint: "I'm okay" Problems Identified/Issues Discussed: No significant events. Patient denies depression or anxiety. Patient has poor insight into her dementia and does not understand why she is in the hospital. No adverse effects to Depakote noted. NO AH/VH/SI/HI. Diagnostic Results: VPA 38.5 on 11/24/16 Medication Change: No Medical Record Reviewed: Yes Mental Status Examination - Cognitive Function Orientation: Person, Place Memory: Intact Attention: Poor Concentration: Poor Association: Loose Fund of Knowledge: Poor Decription of patient's judgement and insights: Poor I/J - Mood Mood: Neutral - Affect Affect: Constricted - Speech Speech: Appropriate - Formal Thought Process Formal Thought Process: Loosening of associations Psychotic Thoughts and Behaviors: NO AH/VH/paranoia - Suicidal Ideation Suicidal Ideation: No - Homicidal Ideation Homicidal Ideation: No Goal/Treatment Plan - Goal/Treatment Plan Need for Continued Stay: Severe functional impairment Progress Toward Problem(s) and Goals/Treatment Plan: Dementia w/ Behavioral Disturbances; Mood Disorder NOS; patient is psychiatrically stable for fpc placement. -Continue Remeron 15 mg PO HS -Continue Depakote 250 mg PO BID; VPA 38.5 on 11/24/16 -Disposition planning- referral to [facility] -Individual and group therapy -Case discussed with POA Estimated Date of D/C: 11/30/16
[2016-11-28] MEDS: Fluticasone-Salmeterol 100-50mcg Diskus IH SCH ×2 (08:47→21:22)
[2016-11-28] MEDS: Metoprolol Succinate 100 mg XL Tab PO SCH (08:47)
[2016-11-28] MEDS: Divalproex 125 mg Sprinkle Capsule PO SCH ×2 (08:48→16:07)
[2016-11-28 16:14] VITALS: RESP 20
[2016-11-29] MEDS: Fluticasone-Salmeterol 100-50mcg Diskus IH SCH (08:53)
[2016-11-29] MEDS: Divalproex 125 mg Sprinkle Capsule PO SCH (08:54)
[2016-11-29 08:57] VITALS: BP 133/60; PULSE 64
[2016-11-29] MEDS: Metoprolol Succinate 100 mg XL Tab PO SCH (08:57)
--- NOTE | 2016-11-29 09:53 | PCM.PYCHDC ---
Mental Status Examination - Mental Status Examination Orientation: Person, Place Memory: Impaired Mood: Neutral Affect: Broad Speech: Appropriate Attention: Poor Concentration: Poor Association: Loose Fund of Knowledge: Poor Formal Thought Process: Loosening of associations Description of patient's judgement and insight: Poor I/J Psychotic Thoughts and Behaviors: NO AH/VH/paranoia Suicidal Ideation: No Current Homicidal Ideation?: No Discharge Summary - Discharge Note Reason for Hospitalization: Patient admitted for worsening dementia with behavioral disturbances, increase irritability and aggression towards others. Laboratory Data: VPA 38.5 on 11/24/16 Consultations:: List each consultation separately and include: 1. Reason for request. 2. Findings. 3. Follow-up Consultations: Physical therapy consult, medicine consult Summary of Hospital Course include:: 1. Description of specific treatment plan utilized for patients during their course of treatmen. 2. Summarize the time- course for resolution of acute symptoms and/or regressed behaviors. 3. Describe issues identified and worked on during hospitalization. 4. Describe medication utilized. 5. Describe medical problems identified and treated. 6. Reassessment of suicide risk Summary of Hospital Course: Patient admitted to the hospital. She was stabilized on Depakote 250 mg PO BID. She is not acutely agitated or aggressive and her mood is more stable. - Final Diagnosis (DSM 5) Condition upon Discharge: STABLE DSM 5: Dementia with Behavioral Disturbances; Mood Disorder Unspecified Disposition: HOME/ ROUTINE Follow-up Treatment Plan: Dementia w/ Behavioral Disturbances; Mood Disorder NOS; patient is psychiatrically stable for snf placement. -Continue Remeron 15 mg PO HS -Continue Depakote 250 mg PO BID; VPA 38.5 on 11/24/16 -Discharge to snf -Case discussed with POA Discharge >35 min Prescriptions/Medication Reconciliation: Fluticasone/Salmeterol [Advair 250-50 Diskus] 1 each IH DAILY #1 [facility] - Smoking Cessation Smoking Cessation Medication prescribed: Yes - Antipsychotic Medications Pt discharged on 2 or more routine antipsychotic medications: No
== END 2016-11-29 10:30 | disposition home or self-care (01) | DRG 885 ==
LOC: H.ER 16:06 → H.ERHOLD 19:36 → H.STEP 21:15
PROVIDERS: ADMIT Psychiatry & Neurology Psychiatry; ATTEND Psychiatry & Neurology Psychiatry
DX: F39 Unspecified mood [affective] disorder (principal); F02.81 Dementia in other diseases classified elsewhere, unspecified severity, with behavioral disturbance; R45.851 Suicidal ideations; J44.9 Chronic obstructive pulmonary disease, unspecified; I10 Essential (primary) hypertension; J45.909 Unspecified asthma, uncomplicated; F17.210 Nicotine dependence, cigarettes, uncomplicated; G47.00 Insomnia, unspecified; Z91.410 Personal history of adult physical and sexual abuse

== ENCOUNTER 2016-11-29 14:43 | Inpatient (IN) | payer MEDICARE, MEDICAID ==
--- NOTE | 2016-11-29 15:28 | ED PDOC ---
HPI: Psych/Substance Abuse Time Seen by Provider: 11/29/16 15:17 Chief Complaint (Nursing): Psychiatric Evaluation Chief Complaint (Provider): Aggressive behavior History Per: Patient, Other (staff) History/Exam Limitations: no limitations Current Symptoms Are (Timing): Still Present Additional Complaint(s): Pt. was aggressive in alf so sent to the ED. Denies any pain, dyspnea , weakness, dizziness. No fall. Not suicidal or homicidal. Past Medical History Reviewed: Historical Data, Nursing Documentation, Vital Signs - Medical History PMH: Alzheimer's Disease, Anxiety, Arthritis, Asthma, Dementia, Depression, HTN Denies: Diabetes, Hepatitis, HIV, Chronic Kidney Disease, Seizures, Sexually Transmitted Disease - Surgical History Surgical History: Cholecystectomy - Family History Family History: States: Unknown Family Hx - Living Arrangements Living Arrangements: With Family - Social History Current smoker - smoking cessation education provided: No Alcohol: None Drugs: Denies - Home Medications Home Medications: Ambulatory Orders Medication Instructions Recorded Metoprolol Succinate [Toprol XL] 100 mg PO DAILY 11/13/16 Acetaminophen [Tylenol 325mg tab] 650 mg PO Q4H PRN 11/29/16 Acetaminophen [Tylenol 325mg tab] 650 mg PO Q4H PRN 11/29/16 Divalproex [Depakote Sprinkles] 500 mg PO BID 11/29/16 Donepezil [Aricept] 10 mg PO HS tab 11/29/16 Ipratropium 0.02% [Atrovent] 0.5 mg IH RQ6 PRN 11/29/16 LORazepam [Ativan] 1 mg PO Q6H PRN 11/29/16 Lorazepam [Ativan] 1 mg IM Q6H PRN 11/29/16 Magnesium Hydroxide [Milk Of 30 ml PO HS PRN 11/29/16 Magnesia] Mirtazapine [Remeron] 15 mg PO HS tab 11/29/16 Nicotine 7 mg/24 hr [Nicoderm CQ] 1 patch TD DAILY patch 11/29/16 buPROPion XL [Wellbutrin XL] 150 mg PO DAILY 11/29/16 - Allergies Allergies/Adverse Reactions: Allergies Allergy/AdvReac Type Severity Reaction Status Date / Time Penicillins Allergy RASH Verified 11/29/16 14:47 Review of Systems ROS Statement: Except As Marked, All Systems Reviewed And Found Negative Psych: Positive for: Other (aggressive) Physical Exam - Reviewed Nursing Documentation Reviewed: Yes Vital Signs Reviewed: Yes - Physical Exam Appears: Positive for: Non-toxic, No Acute Distress Head Exam: Positive for: ATRAUMATIC, NORMAL INSPECTION, NORMOCEPHALIC Skin: Positive for: Normal Color, Warm, DRY Eye Exam: Positive for: EOMI, Normal appearance, PERRL ENT: Positive for: Normal ENT Inspection Neck: Positive for: Normal, Painless ROM Cardiovascular/Chest: Positive for: Regular Rate, Rhythm Respiratory: Positive for: CNT, Normal Breath Sounds Gastrointestinal/Abdominal: Positive for: Normal Exam, Bowel Sounds, Soft. Negative for: Tenderness Back: Positive for: Normal Inspection. Negative for: L CVA Tenderness Extremity: Positive for: Normal ROM. Negative for: Tenderness, Pedal Edema Neurologic/Psych: Positive for: Alert, Oriented. Negative for: Motor/Sensory Deficits - Progress ED Course And Treament: 1829: Stable. Alert. Crisis wants to observe pt. Pt. needed ativan and restraints for aggressive behavior and psychosis with threat to staff and self. Well known to Dr. Castellanos. Was dc to nursing today from psych. Want to observe pt. in the ED and will re-eval. Dr. Jacob to take over care. Disposition - Clinical Impression Clinical Impression: Dementia - Patient ED Disposition Is Patient to be Admitted: No Counseled Patient/Family Regarding: Diagnosis - Disposition Disposition: Transfer of Care Disposition Time: 18:31 Condition: STABLE Patient Signed Over To: Amy Jacob
--- NOTE | 2016-11-29 19:27 | ED PDOC ---
- Laboratory Results Result Diagrams: 11/29/16 21:42 11/29/16 21:42 - ECG O2 Sat by Pulse Oximetry: 96 - Progress ED Course And Treament: Assumed care from Dr Edwards. Pending psych eval. Medical Decision Making Medical Decision Making: Vital signs are stable. Labs reviewed. In my opinion there are no current acute medical conditions that contraindicate the placement of this patient in a psychiatric unit. Disposition Doctor Will See Patient In The: Hospital Counseled Patient/Family Regarding: Studies Performed, Diagnosis - Clinical Impression Clinical Impression: Dementia - POA Present On Arrival: None - Disposition Disposition: Admitted as In-Patient Disposition Time: 22:57 Condition: FAIR
[2016-11-29 21:51] LABS: BASO # 0.1 K/uL (0.0-0.2); BASO % 0.5 % (0.0-2.0); EOS # 0.2 K/uL (0.0-0.7); EOS % 1.6 % (0.0-4.0); HEMOGLOBIN 13.6 g/dL (12.0-16.0); LYMPH # 2.7 K/uL (1.0-4.3); LYMPH % 18.4 % (20.0-40.0); MEAN CELL VOLUME 85.4 fl (81.0-99.0); MEAN CORPUSCULAR HEMOGLOBIN 27.8 pg (27.0-31.0); MEAN CORPUSCULAR HGB CONC 32.5 g/dL (33.0-37.0); MEAN PLATELET VOLUME 8.9 fl (7.2-11.7); MONO # 1.2 K/uL (0.0-0.8); MONO % 8.2 % (0.0-10.0); NEUT # 10.3 K/uL (1.8-7.0); NEUT % 71.3 % (50.0-75.0); RBC 4.9 Mil/uL (3.80-5.20); RED CELL DISTRIBUTION WIDTH 14.7 % (11.5-14.5); WHITE BLOOD COUNT 14.4 K/uL (4.8-10.8)
[2016-11-29 21:59] LABS: ALB/GLOB RATIO 1.3 (1.0-2.1); ALBUMIN 4.2 g/dL (3.5-5.0); ALT/SGPT 35 U/L (9-52); AST/SGOT 38 U/L (14-36); BLOOD UREA NITROGEN 25 mg/dl (7-17); CALCIUM 9.2 mg/dL (8.4-10.2); GFR AFRICAN-AMERICAN 59; GFR NON-AFRICAN AMERICAN 48
[2016-11-29 22:10] LABS: BARBITURATES, UR NEGATIVE (NEGATIVE); BENZODIAZEPINES, UR NEGATIVE (NEGATIVE); OPIATES, UR NEGATIVE (NEGATIVE); PHENCYCLIDINE, UR NEGATIVE (NEGATIVE)
[2016-11-29 23:54] VITALS: O2SAT 98
[2016-11-30] MEDS ORDERED: Magnesium Hydroxide Susp 30 ml UD PO PRN (00:49)
[2016-11-30] MEDS ORDERED: Bismuth Subsalicylate 262 mg/15 ml Sus (240 ml) PO PRN (00:49)
[2016-11-30] MEDS ORDERED: Alum-Mag Hydrox-Simethicone Susp (30 mL) PO PRN (00:49)
[2016-11-30 09:48] LABS: HEMOGLOBIN 13.7 g/dL (12.0-16.0); MEAN CORPUSCULAR HEMOGLOBIN 28.1 pg (27.0-31.0); MEAN CORPUSCULAR HGB CONC 32.7 g/dL (33.0-37.0); RBC 4.87 Mil/uL (3.80-5.20); RED CELL DISTRIBUTION WIDTH 15.5 % (11.5-14.5)
[2016-11-30] MEDS ORDERED: Ipratropium 0.02% Inhal Soln (0.5 mg/2.5 ml) UD IH PRN (09:51)
[2016-11-30] MEDS ORDERED: NICOTINE 2 MG GUM PO PRN (09:57)
--- NOTE | 2016-11-30 10:00 | PCM.PSYCH ---
Initial Psychiatric Evaluation - Initial Psychiatric Evaluation Type of Admission: Voluntary Legal Status: DPOA Chief Complaint (in patient's own words): "I don't know why I'm here" Patient's Reaction to Hospitalization: HPI: 76 year old female w/ history of dementia w/ behavioral disturbances, discharged from psychiatry unit yesterday to long term, when she arrived at the long term the patient became acutely agitated and was sent back to the hospital for aggressive behavior and agitation. Patient is a poor historian due to dementia and does not recall what happened. Patient is denying acute depression/anxiety/psychosis/SI/HI, but is disoriented and irritable towards staff. POA consented to admission to psychiatry unit. PMHx: Dementia, Depression, HTN PSHx: None ALL: PCN Social Hx: (+) Tobacco 3 to 4 cigarettes per day, NO alcohol, NO illicit drugs; previously lived with granddaughter/daughter. Family Hx: No known family hx of mental illness Current Medications: Active Medications Generic Name Dose Route Start Last Admin Trade Name Freq PRN Reason Stop Dose Admin Acetaminophen 650 mg 11/30/16 00:49 Tylenol 325mg Tab PO Q4 PRN Pain, moderate (4-7) Al Hydrox/Mg Hydrox/Simethicone 30 ml 11/30/16 00:49 Maalox Plus 30 Ml PO Q4 PRN Dyspepsia Bismuth Subsalicylate 524 mg 11/30/16 00:49 Pepto-Bismol PO Q4 PRN Diarrhea Divalproex Sodium 250 mg 11/30/16 10:00 Ashleigh Pineda(*Bid*) PO DAILY [facility] Divalproex Sodium 500 mg 11/30/16 17:00 Ashleigh Pineda(*Bid*) PO DAILY@1700 [facility] Donepezil HCl 10 mg 11/30/16 22:00 Aricept PO HS [facility] Ipratropium [place] 0.5 mg 11/30/16 09:51 Atrovent IH RQ6 PRN Cough and congestion Lorazepam 0.5 mg 11/30/16 00:49 Ativan PO 12/14/16 00:50 HS PRN Insomnia Lorazepam 0.5 mg 11/30/16 00:49 Ativan PO 12/14/16 00:50 Q6 PRN Anixety/Agitation Magnesium Hydroxide 30 ml 11/30/16 00:49 Milk Of Magnesia PO HS PRN Constipation Metoprolol Succinate 100 mg 11/30/16 10:00 Toprol Xl PO DAILY [facility] Mirtazapine 15 mg 11/30/16 22:00 Remeron PO HS [facility] Nicotine 1 patch 11/30/16 09:45 Nicoderm Cq TD DAILY [facility] Past Psychiatric History - Past Psychiatric History Previous Treatment History: Inpatient Pertinent Medical Hx (Current Medical&Sleep Prob, Allergies): Allergies Allergy/AdvReac Type Severity Reaction Status Date / Time Penicillins Allergy RASH Verified 11/29/16 14:47 Metoprolol Succinate [Toprol XL] 100 mg PO DAILY 11/13/16 Acetaminophen [Tylenol 325mg tab] 650 mg PO Q4H PRN 11/29/16 Acetaminophen [Tylenol 325mg tab] 650 mg PO Q4H PRN 11/29/16 Divalproex [Depakote Sprinkles] 500 mg PO BID 11/29/16 Donepezil [Aricept] 10 mg PO HS tab 11/29/16 Ipratropium 0.02% [Atrovent] 0.5 mg IH RQ6 PRN 11/29/16 LORazepam [Ativan] 1 mg PO Q6H PRN 11/29/16 Lorazepam [Ativan] 1 mg IM Q6H PRN 11/29/16 Magnesium Hydroxide [Milk Of Magnesia] 30 ml PO HS PRN 11/29/16 Mirtazapine [Remeron] 15 mg PO HS tab 11/29/16 Nicotine 7 mg/24 hr [Nicoderm CQ] 1 patch TD DAILY patch 11/29/16 buPROPion XL [Wellbutrin XL] 150 mg PO DAILY 11/29/16 Review of Systems - Psychiatric Psychiatric: Behavioral Changes, Confusion, Irritability, Memory Loss, Mood Swings, Other (Agitation/Aggression) Mental Status Examination - Personal Presentation Personal Presentation: Looks stated age - Affect Affect: Constricted (Irritable) - Motor Activity Motor Activity: Calm - Reliability in Providing Information Reliability in Providing Information: Poor, due to cognitve impairment - Speech Speech: Irrelevant, Coherent - Mood Mood: Neutral - Formal Thought Process Formal Thought Process: Loosening of associations - Hallucinations/Delusions Additional comments: Denies AH/VH/paranoia/delusions - Obsessions/Compulsions Obsessions: No Compulsions: No - Cognitive Functions Orientation: Person Sensorium: Alert Attention/Concentration: Easily distracted Estimate of Intelligence: Average Judgement: Imparied, as evidence by: Poor judgement, Imparied, as evidence by: Lack of insight into illness Memory: Recent impaired, as evidence by: Inability to recall events of the day, Recent imparied as evidence by:Inability to complete 3/3 object recall, Remote impaired as evidenced by: Inability to recall sig life events, Remote impaired as evidenced by: Inability to recall historical events - Risk Risk: Diminished functioning, Other (Aggressive) - Strength & Assets Inventory Strength & Assets Inventory: Family support - Limitations Limitations: Decreased memory, recent DSM 5 DX - DSM 5 DSM 5 Diagnosis: Dementia with behavioral disturbances; Mood disorder unspecified - Recommended/Plan of Treatment Treatment Recommendations and Plan of Treatment: Dementia with behavioral disturbances; Mood disorder unspecified -Admit to psychiatry -Increase Depakote to 250 mg PO Daily/ 500 mg PO Daily@1700; Check VPA level -Continue Remeron 15 mg PO HS -Continue Aricept 10 mg PO HS -Hospitalist consult -Disposition planning- will discuss disposition options with the daughter Projected ELOS: 2-5 days Discharge Plan and Discharge Criteria: Discharge when psychiatrically stable - Smoking Cessation Smoking Cessation Initiated: Yes
[2016-11-30] MEDS: Fluticasone-Salmeterol 100-50mcg Diskus IH SCH (11:29)
[2016-11-30] MEDS: Metoprolol Succinate 100 mg XL Tab PO SCH (11:30)
[2016-11-30] MEDS: Divalproex 250 mg DR(BID formulation) PO SCH (11:33)
[2016-11-30] MEDS: Divalproex 500 mg DR(BID formulation) PO SCH (17:06)
[2016-12-01] MEDS: Fluticasone-Salmeterol 100-50mcg Diskus IH SCH ×3 (00:46→21:02)
[2016-12-01] MEDS: Divalproex 250 mg DR(BID formulation) PO SCH (08:30)
[2016-12-01] MEDS: Metoprolol Succinate 100 mg XL Tab PO SCH (08:31)
--- NOTE | 2016-12-01 09:21 | PCM.PYCHPN ---
Psychiatric Progress Note - Psychiatric Progress Note Patient seen today, length of contact: Patient evaluated, case discussed with team, chart reviewed 35 min Patient Chief Complaint: "I'm fine" Problems Identified/Issues Discussed: Patient is irritable, paces the hallways at time. Requests to call her daughter frequently. She does not understand why she is in the hospital. She has not been aggressive towards staff. Diagnostic Results: VPA 60.7 on 12/01/16 Medication Change: No Medical Record Reviewed: Yes Mental Status Examination - Cognitive Function Orientation: Person Memory: Impaired Attention: Poor Concentration: Poor Association: Loose Fund of Knowledge: Poor - Mood Mood: Neutral - Affect Affect: Constricted (Irritable) - Speech Speech: Appropriate - Formal Thought Process Formal Thought Process: Loosening of associations Psychotic Thoughts and Behaviors: Denies AH/VH/paranoia - Suicidal Ideation Suicidal Ideation: No - Homicidal Ideation Homicidal Ideation: No Goal/Treatment Plan - Goal/Treatment Plan Need for Continued Stay: Severe functional impairment Progress Toward Problem(s) and Goals/Treatment Plan: Dementia with behavioral disturbances; Mood disorder unspecified -Contiue Depakote 250 mg PO Daily/ 500 mg PO Daily@1700; VPA 60.7 on 12/01/16 -Continue Remeron 15 mg PO HS -Continue Aricept 10 mg PO HS -Hospitalist consult -Disposition planning-patient likely to return home with her daughter when she is psychiatrically stable Estimated Date of D/C: 12/04/16 - Smoking Cessation Smoking Cessation Initiated: Yes
[2016-12-01] MEDS: Divalproex 500 mg DR(BID formulation) PO SCH (17:43)
[2016-12-02] MEDS: Fluticasone-Salmeterol 100-50mcg Diskus IH SCH (09:28)
[2016-12-02] MEDS: Metoprolol Succinate 100 mg XL Tab PO SCH (09:29)
[2016-12-02] MEDS: Divalproex 250 mg DR(BID formulation) PO SCH (09:30)
--- NOTE | 2016-12-02 16:45 | PCM.PYCHPN ---
Psychiatric Progress Note - Psychiatric Progress Note Patient seen today, length of contact: Patient evaluated, case discussed with team, chart reviewed 35 min Patient Chief Complaint: pt seen at nurse's station frequently, frequently asking about when food will come (after being told when), frequently asking for daughter to be called( stating she told me I was going home today), pt is irritated at times, requires frequent redirection, pt is noted to attempt to take other patients' food from cart, eating with her fingers-requires frequent redirection. is rx adherent. Problems Identified/Issues Discussed: alteration in mood, alteration in cognition, alteration in self care Medical Problems: per chart Diagnostic Results: per psychiatry per medicine per nursing per protective services social worker per recreational therapy Medication Change: No Medical Record Reviewed: Yes Mental Status Examination - Cognitive Function Orientation: Person Memory: Impaired Attention: Poor Concentration: Poor Association: Loose Fund of Knowledge: Poor Decription of patient's judgement and insights: poor - Mood Mood: Neutral - Affect Affect: Constricted (Irritable) - Speech Speech: Appropriate - Formal Thought Process Formal Thought Process: Loosening of associations - Suicidal Ideation Suicidal Ideation: No - Homicidal Ideation Homicidal Ideation: No Goal/Treatment Plan - Goal/Treatment Plan Need for Continued Stay: Remain at risks for inpatient hospitalization, Failed transitioning, Severe functional impairment Progress Toward Problem(s) and Goals/Treatment Plan: inpt milieu vital signs/clinical observation per protocol and per clinical status access to telugu speaking provider and or use of [employer] [employer] phone supportive counseling/redirection adjust meds per status discharge planning in progress pt has poa-her daughter Estimated Date of D/C: 12/04/16 - Smoking Cessation Smoking Cessation Initiated: Yes
[2016-12-02] MEDS: Divalproex 500 mg DR(BID formulation) PO SCH (18:07)
[2016-12-03] MEDS: Fluticasone-Salmeterol 100-50mcg Diskus IH SCH ×2 (01:07→08:37)
[2016-12-03] MEDS: Metoprolol Succinate 100 mg XL Tab PO SCH (08:38)
[2016-12-03] MEDS: Divalproex 250 mg DR(BID formulation) PO SCH (08:39)
--- NOTE | 2016-12-03 14:42 | PCM.PYCHPN ---
Psychiatric Progress Note - Psychiatric Progress Note Patient seen today, length of contact: Patient evaluated, case discussed with team, chart reviewed 35 min Patient Chief Complaint: pt seen at nurse's station frequently, frequently asking about when food will come (after being told when), frequently asking for daughter to be called( stating she told me I was going home today), pt is irritated at times, requires frequent redirection, requires frequent redirection. is rx adherent. Problems Identified/Issues Discussed: alteration in mood, alteration in cognition, alteration in self care Medical Problems: per chart Diagnostic Results: per psychiatry per medicine per nursing per health social work professor per recreational therapy DSM 5 Symptoms Update: alteration in cognition alteration in self care Medication Change: No Medical Record Reviewed: Yes Consults ordered or reviewed: pt being followed by hospitalist Mental Status Examination - Cognitive Function Orientation: Person Memory: Impaired Attention: Poor Concentration: Poor Association: Loose Fund of Knowledge: Poor Decription of patient's judgement and insights: poor - Mood Mood: Neutral - Affect Affect: Constricted (Irritable) - Speech Speech: Appropriate - Formal Thought Process Formal Thought Process: Loosening of associations - Suicidal Ideation Suicidal Ideation: No - Homicidal Ideation Homicidal Ideation: No Goal/Treatment Plan - Goal/Treatment Plan Need for Continued Stay: Remain at risks for inpatient hospitalization, Failed transitioning, Severe functional impairment Progress Toward Problem(s) and Goals/Treatment Plan: inpt milieu vital signs/clinical observation per protocol and per clinical status access to eritrean speaking provider and or use of [employer] phone supportive counseling/redirection adjust meds per status discharge planning in progress- pt has poa-her daughter Estimated Date of D/C: 12/04/16 - Smoking Cessation Smoking Cessation Initiated: No Reason for not providing: deferred
[2016-12-03] MEDS: Divalproex 500 mg DR(BID formulation) PO SCH (17:20)
[2016-12-04 06:24] VITALS: BP 134/89; PULSE 89; RESP 19; TEMP 98
--- NOTE | 2016-12-04 08:39 | PCM.PYCHDC ---
Mental Status Examination - Mental Status Examination Orientation: Person Memory: Impaired Mood: Neutral Affect: Broad Speech: Appropriate Attention: Poor Concentration: Poor Association: Loose Fund of Knowledge: Poor Formal Thought Process: Loosening of associations Description of patient's judgement and insight: Poor insight/judgment due to dementia Psychotic Thoughts and Behaviors: Denies AH/VH/paranoia Suicidal Ideation: No Current Homicidal Ideation?: No Discharge Summary - Discharge Note Reason for Hospitalization: HPI: 76 year old female w/ history of dementia w/ behavioral disturbances, discharged from psychiatry unit yesterday to [facility], when she arrived at the [facility] the patient became acutely agitated and was sent back to the hospital for aggressive behavior and agitation. Patient is a poor historian due to dementia and does not recall what happened. Patient is denying acute depression/anxiety/psychosis/SI/HI, but is disoriented and irritable towards staff. POA consented to admission to psychiatry unit. PMHx: Dementia, Depression, HTN PSHx: None ALL: PCN Social Hx: (+) Tobacco 3 to 4 cigarettes per day, NO alcohol, NO illicit drugs; previously lived with granddaughter/daughter. Family Hx: No known family hx of mental illness Consultations:: List each consultation separately and include: 1. Reason for request. 2. Findings. 3. Follow-up Consultations: Medicine consult- No changes to current medications Summary of Hospital Course include:: 1. Description of specific treatment plan utilized for patients during their course of treatmen. 2. Summarize the time- course for resolution of acute symptoms and/or regressed behaviors. 3. Describe issues identified and worked on during hospitalization. 4. Describe medication utilized. 5. Describe medical problems identified and treated. 6. Reassessment of suicide risk Summary of Hospital Course: Patient admitted the hospital and was stabilized on Aricept 10 mg PO HS, Depakote 250 mg PO Daily/ 500 mg PO HS, Namenda 5 mg PO Daily and Remeron 15 mg Po HS. She is no longer acutely agitated/aggressive and will return home with her family. Individual and group therapy provided. - Final Diagnosis (DSM 5) Condition upon Discharge: FAIR DSM 5: Dementia with behavioral disturbances; mood disorder unspecified Disposition: HOME/ ROUTINE Follow-up Treatment Plan: Dementia with behavioral disturbances; Mood disorder unspecified -Contiue Depakote 250 mg PO Daily/ 500 mg PO Daily@1700; VPA 60.7 on 12/01/16 -Continue Remeron 15 mg PO HS -Continue Aricept 10 mg PO HS and Namenda 5 mg PO Daily -Hospitalist consult -Disposition planning-patient to return home with her daughter Prescriptions/Medication Reconciliation: Divalproex [Depakote DR(*BID*)] 250 mg PO DAILY #30 tcp Divalproex [Depakote DR(*BID*)] 500 mg PO DAILY@1700 #30 tcp Donepezil [Aricept] 10 mg PO HS #30 tab Fluticasone/Salmeterol 100/50 [Advair Diskus 100/50] 1 puff IH Q12 #1 puff Ipratropium 0.02% [Atrovent] 0.5 mg IH RQ6 PRN #1 PRN Reason: Cough And Congestion Memantine [Namenda] 5 mg PO DAILY #30 tab Metoprolol Succinate [Toprol XL] 100 mg PO DAILY #30 Mirtazapine [Remeron] 15 mg PO HS #30 tab Nicotine 7 mg/24 hr [Nicoderm CQ] 1 patch TD DAILY #30 patch - Smoking Cessation Smoking Cessation Medication prescribed: Yes - Antipsychotic Medications Pt discharged on 2 or more routine antipsychotic medications: No
[2016-12-04] MEDS: Fluticasone-Salmeterol 100-50mcg Diskus IH SCH ×2 (09:03→15:09)
[2016-12-04] MEDS: Divalproex 250 mg DR(BID formulation) PO SCH (09:04)
[2016-12-04] MEDS: Metoprolol Succinate 100 mg XL Tab PO SCH (09:04)
[2016-12-04] MEDS: Divalproex 500 mg DR(BID formulation) PO SCH (16:20)
== END 2016-12-04 18:01 | disposition home or self-care (01) | DRG 884 ==
LOC: H.ER 14:43 → H.ERHOLD 22:56 → H.STEP 11-30 00:33
PROVIDERS: ADMIT Psychiatry & Neurology Psychiatry; ATTEND Psychiatry & Neurology Psychiatry
DX: F03.91 Unspecified dementia, unspecified severity, with behavioral disturbance (principal); Z78.1 Physical restraint status; I10 Essential (primary) hypertension; F39 Unspecified mood [affective] disorder; F17.210 Nicotine dependence, cigarettes, uncomplicated; J45.909 Unspecified asthma, uncomplicated; M19.90 Unspecified osteoarthritis, unspecified site; Z88.0 Allergy status to penicillin

== ENCOUNTER 2017-01-08 13:27 | Inpatient (IN) | payer OTHER, MEDICAID ==
[2017-01-08 13:41] VITALS: O2SAT 100
--- NOTE | 2017-01-08 14:34 | ED PDOC ---
HPI: Altered Mental Status Time Seen by Provider: 01/08/17 13:41 Chief Complaint (Nursing): Altered Mental Status Chief Complaint (Provider): Altered Mental Status History Per: Patient History/Exam Limitations: None Onset/Duration Of Symptoms: Mins (Prior to arrival) Current Symptoms Are (Timing): Still Present Associated Symptoms: Agitated, Other (anxiety) Additional Complaint(s): Anlia Mccartney is a 76 year old female, with a past medical history of anxiety, high blood pressure, and dementia, who presents to the emergency department with her daughter due to patient's altered mental status prior to arrival. Daughter states she has power of personal injury attorney and reports increasing anxiety at home , aggressive behavior, and sudden "outbursts." Daughter requests patient to be admitted. Patient is not compliant with her daughter's report. Patient denies any physical problems, homicidal or suicidal ideations. PMD: Bolivar Wasserman Past Medical History Reviewed: Historical Data, Nursing Documentation, Vital Signs Vital Signs: Last Vital Signs Temp 98.0 F 01/08/17 13:35 Pulse 69 01/08/17 13:35 Resp 18 01/08/17 13:35 BP 162/102 H 01/08/17 13:35 Pulse Ox 100 01/08/17 13:35 - Medical History PMH: Alzheimer's Disease, Anxiety, Arthritis, Asthma, Dementia, Depression, HTN Denies: Diabetes, Hepatitis, HIV, Chronic Kidney Disease, Seizures, Sexually Transmitted Disease - Surgical History Surgical History: Cholecystectomy - Family History Family History: States: Unknown Family Hx - Home Medications Home Medications: Ambulatory Orders Medication Instructions Recorded Divalproex [Depakote DR(*BID*)] 250 mg PO DAILY #30 tcp 12/04/16 Donepezil [Aricept] 10 mg PO HS #30 tab 12/04/16 Fluticasone/Salmeterol 100/50 1 puff IH Q12 #1 puff 12/04/16 [Advair Diskus 100/50] Ipratropium 0.02% [Atrovent] 0.5 mg IH RQ6 PRN #1 12/04/16 Memantine [Namenda] 5 mg PO DAILY #30 tab 12/04/16 Metoprolol Succinate [Toprol XL] 100 mg PO DAILY #30 12/04/16 Mirtazapine [Remeron] 15 mg PO HS #30 tab 12/04/16 Nicotine 7 mg/24 hr [Nicoderm CQ] 1 patch TD DAILY #30 patch 12/04/16 Albuterol Sulfate [Proair Hfa] 2 puff IH Q4H PRN 01/08/17 Divalproex [Depakote ER] 500 mg PO QPM 01/08/17 - Allergies Allergies/Adverse Reactions: Allergies Allergy/AdvReac Type Severity Reaction Status Date / Time Penicillins Allergy RASH Verified 11/29/16 14:47 Review of Systems ROS Statement: Except As Marked, All Systems Reviewed And Found Negative Neurological: Positive for: Altered Mental Status Psych: Positive for: Anxiety. Negative for: Suicidal ideation (& homicidal ideation) Physical Exam - Reviewed Nursing Documentation Reviewed: Yes Vital Signs Reviewed: Yes - Physical Exam Appears: Positive for: Well, Non-toxic, No Acute Distress Head Exam: Positive for: ATRAUMATIC, NORMAL INSPECTION, NORMOCEPHALIC Skin: Positive for: Normal Color, Warm, DRY Eye Exam: Positive for: Normal appearance Neck: Positive for: Normal, Painless ROM Respiratory: Positive for: Normal Breath Sounds. Negative for: Respiratory Distress Neurologic/Psych: Positive for: Alert, Oriented - Laboratory Results Result Diagrams: 01/08/17 14:55 01/08/17 14:55 - ECG O2 Sat by Pulse Oximetry: 100 (RA) Pulse Ox Interpretation: Normal Medical Decision Making Medical Decision Making: Initial Impression: Altered Mental Status Initial Play: --EKG --Alcohol Serum --Comp Metabolic Panel --Drug screen, urine --Crisis evaluation --Urine dipstick --CBC w/ differential --Chest one view [RAD] --1:1 observation --reevaluation Pt medicated with Ativan 1 mg IM to relieve her of her agitation. On re-eval, Pt calm and cooperative. Repeat BP: 158/82 P: 78 Labs resulted and reviewed, Medically cleared for admission CXR: NAD, as read by ANGIE EKG interpreted and cleared by ED MD See crisis eval notes. Scribe Attestation: Documented by Chuck Awad, acting as a scribe for Ingrid BIGGS. Provider Scribe Attestation: All medical record entries made by the Scribe were at my direction and personally dictated by me. I have reviewed the chart and agree that the record accurately reflects my personal performance of the history, physical exam, medical decision making, and the department course for this patient. I have also personally directed, reviewed, and agree with the discharge instructions and disposition. Disposition - Clinical Impression Clinical Impression: Dementia - Patient ED Disposition Is Patient to be Admitted: Yes - Disposition Disposition Time: 19:06 Condition: STABLE
[2017-01-08 15:35] LABS: BASO % 0.6 % (0.0-2.0); EOS # 0.3 K/uL (0.0-0.7); EOS % 3.8 % (0.0-4.0); HEMATOCRIT 43.1 % (34.0-47.0); LYMPH # 2.1 K/uL (1.0-4.3); LYMPH % 27.5 % (20.0-40.0); MEAN CELL VOLUME 88.4 fl (81.0-99.0); MEAN CORPUSCULAR HEMOGLOBIN 29.3 pg (27.0-31.0); MEAN CORPUSCULAR HGB CONC 33.1 g/dL (33.0-37.0); MEAN PLATELET VOLUME 8.7 fl (7.2-11.7); MONO # 0.7 K/uL (0.0-0.8); NEUT # 4.5 K/uL (1.8-7.0); NEUT % 59.1 % (50.0-75.0); WHITE BLOOD COUNT 7.6 K/uL (4.8-10.8)
[2017-01-08 15:43] LABS: ALB/GLOB RATIO 1.2 (1.0-2.1); ALCOHOL SERUM < 10 mg/dl (0-10); ALKALINE PHOSPHATASE 68 U/L (38-126); ALT/SGPT 20 U/L (9-52); AST/SGOT 27 U/L (14-36); BILIRUBIN,TOTAL 0.4 mg/dl (0.2-1.3); BLOOD UREA NITROGEN 15 mg/dl (7-17); CALCIUM 9.1 mg/dL (8.4-10.2); CARBON DIOXIDE 30 mmol/L (22-30); CHLORIDE 105 mmol/L (98-107); GFR AFRICAN-AMERICAN > 60; GLUCOSE,RANDOM 91 mg/dL (65-105); POTASSIUM 4.3 MMOL/L (3.6-5.0); SODIUM 143 mmol/l (132-148); TOTAL PROTEIN 7.5 G/DL (6.3-8.2)
--- NOTE | 2017-01-08 17:38 | RAD ---
PROCEDURE: CHEST RADIOGRAPH, 1 VIEW HISTORY: med screening COMPARISON: Prior chest radiograph 11/13/2016. FINDINGS: LUNGS: No acute infiltrate identified once again. PLEURA: No pneumothorax or pleural fluid seen. CARDIOVASCULAR: Normal. OSSEOUS STRUCTURES: No significant abnormalities. VISUALIZED UPPER ABDOMEN: Normal. OTHER FINDINGS: None. IMPRESSION: No acute cardiopulmonary disease or significant interval change.
--- NOTE | 2017-01-08 22:30 | PCM.BM ---
<Pete Mckoy - Last Filed: 01/08/17 22:28> Treatment Plan Problems - Problems identified on initial assessmt Anger, Aggression and Violent Behaviors Date Initiated: 01/08/17 Time Initiated: 22:29 Assessment reference: NA Status: Active Treatment assets and liabiliti Patient Assests: good support system Patient Liabilities: relationship conflicts, imparied memory, other - Milieu Protocol Maintain good personal hygiene: daily Encourage regular showers, daily Remind patient to perform daily oral care, daily Assist patient to perform ADL's Maintain personal safety: every shift Educate patient to report safety concerns to staff, every shift Monitor environment for contraband/sharps Medication safety: Monitor for expected outcome, potential side effects: every shift, Assess barriers to learning: every shift, Assess readiness for medication education: every shift <Radha Castellanos - Last Filed: 01/09/17 08:04> - Diagnosis (1) Dementia with behavioral disturbance Status: Acute Interventions: Medication management, individual and group therapy, psychoeducation 01/09/17 08:04 <Meghan Valdovinos - Last Filed: 01/11/17 10:24> Family Contact Family contact: Patient agrees to contact, Family has been contacted by patient , Telephone contact initiated by staff, Family meeting planned to review treatment plan Family contact name: Marta Brooks Family contacted how many times per week?: 2 Family contact comment: [phone] - Outside Agency Dr. Justo Montgomery MD Care involvment: Information-sharing Agency contact number: [phone] - Goals for Treatment Patient goals for treatment: Pt unable to state due to severe cognitive impairment Patient's family/SO goals for treatment: Per daughter and POA, to decrease agitation, irritability, and aggressive bx's. Pt is difficult to re-direct at home and presents with poor insight into illness and dx Discharge/Continuing Care - Education Needs Education Needs: Family Medication, Family Diagnosis/Disease Process, Family Coping Skills, Family Anger Management skills, Family Placement options, Family Community resources, Family Activities of Daily Living, Family Personal Hygiene/ Grooming, Family Aftercare Safety Plan, Patient Medication, Patient Diagnosis/ Disease Process, Patient Coping Skills, Patient Anger Management skills, Patient Placement options, Patient Community resources, Patient Activities of Daily Living, Patient Personal Hygiene/Grooming, Patient Aftercare Safety Plan - Discharge Discharge Criteria: Tolerates medication w/o severe side effects, Free of agitation, Normal sleep pattern, Reduction of target symptoms Discharge to:: Home, With Family - Additional Comments 01/11/17 10:21 Pt's progress and bx discussed. Pt's medications reviewed. Pt will be returning home with daughter. Team will contact [facility] due to daughter living pt home alone during the day after being informed that pt cannot be left alone due to extensive of mental illness. - Treatment Team Participation Discussed with Family/SO: Yes Was Patient/Family/SO present at Treatment Team Meeting: No
[2017-01-08] MEDS ORDERED: Bismuth Subsalicylate 262 mg/15 ml Sus (240 ml) PO PRN (23:35)
[2017-01-08] MEDS ORDERED: Alum-Mag Hydrox-Simethicone Susp (30 mL) PO PRN (23:35)
[2017-01-08] MEDS ORDERED: Magnesium Hydroxide Susp 30 ml UD PO PRN (23:35)
[2017-01-09] MEDS ORDERED: Albuterol-Ipratrop 3 mg / 0.5 (3 ml) UD INH PRN (01:10)
[2017-01-09 07:58] LABS: ALB/GLOB RATIO 1.2 (1.0-2.1); ALKALINE PHOSPHATASE 60 U/L (38-126); ALT/SGPT 18 U/L (9-52); AST/SGOT 26 U/L (14-36); BILIRUBIN,TOTAL 0.4 mg/dl (0.2-1.3); BLOOD UREA NITROGEN 15 mg/dl (7-17); CALCIUM 8.8 mg/dL (8.4-10.2); CARBON DIOXIDE 28 mmol/L (22-30); CHLORIDE 106 mmol/L (98-107); CHOLESTEROL 180 mg/dL (0-199); GFR AFRICAN-AMERICAN > 60; GLUCOSE,RANDOM 82 mg/dL (65-105); POTASSIUM 4.1 MMOL/L (3.6-5.0); SODIUM 142 mmol/l (132-148); TOTAL PROTEIN 6.6 G/DL (6.3-8.2)
--- NOTE | 2017-01-09 08:14 | PCM.PSYCH ---
Initial Psychiatric Evaluation - Initial Psychiatric Evaluation Type of Admission: Voluntary Legal Status: DPOA (Daughter) Chief Complaint (in patient's own words): "I'm okay" Patient's Reaction to Hospitalization: Patient is a poor historian due to dementia, history obtained from the chart HPI: 76 year old female w/ history of dementia w/ behavioral disturbances, most recently admitted to [facility] from 11/29/16-12/04/16, presents with worsening aggression. She was admitted to the hospital in November and upon leaving [facility] she was discharged to a group home. Patient was sent back to the ED after two hours of being at the group home due to agitation and being upset by her new unknown environment. Patient's daughter stated that the patient is still exhibiting these aggressive behaviors. Patient is diagnosed with Dementia and has been hospitalized three times this year at [facility] for her illness. Patient's daughter stated that the patient is sleeping at night and is eating well. Patient's daughter stated that her eating is well especially due to her medication. It has increased her appetite at this time. In the ER, patient reported feeling homicidal but did not state a plan. Patient currently denies any ideation to harm herself or others. Patient's daughter stated that a lot of her agitation comes from when the patient can't smoke. Patient can be verbally aggressive and can destroy property as well. Patient's daughter Marta Brooks [phone] stated that the patient has been regressing since losing her apartment in September. She stated that the patient is confrontational at home and also aggressive. Patient's daughter reported that the patient is stubborn and wants to do things her way. Patient's daughter would like for her to be admitted to the hospital, as she feels she needs hospitalization at this time. Patient is a poor historian due to dementia and does not recall what happened. Patient is denying acute depression/anxiety/psychosis/SI/HI. POA consented to admission to psychiatry unit. PPHx: Patient has been admitted to the [facility] unit three times in 2016. She has been admitted on 06/30/16-07/04/16, 11/13/16-11/29/16, 11/29/16-12/04/16. On Remeron 30 mg PO Daily, Depakote 250 AM/ 500 HS, Aricept 10 mg PO HS, Namenda 5 mg PO Daily PMHx: Dementia, Depression, HTN PSHx: None ALL: PCN Social Hx: (+) Tobacco 3 to 4 cigarettes per day, NO alcohol, NO illicit drugs; previously lives with granddaughter/daughter. Patient denied any legal history. Family Hx: No known family hx of mental illness Current Medications: Active Medications Generic Name Dose Route Start Last Admin Trade Name Freq PRN Reason Stop Dose Admin Acetaminophen 650 mg 01/08/17 23:35 Tylenol 325mg Tab PO Q4 PRN Pain, moderate (4-7) Al Hydrox/Mg Hydrox/Simethicone 30 ml 01/08/17 23:35 Maalox Plus 30 Ml PO Q4 PRN Dyspepsia Albuterol/Ipratropium 3 ml 01/09/17 01:10 Duoneb 3 Mg/0.5 Mg (3 Ml) Ud INH RQ6 PRN Shortness of Breath Bismuth Subsalicylate 524 mg 01/08/17 23:35 Pepto-Bismol PO Q4 PRN Diarrhea Divalproex Sodium 500 mg 01/09/17 09:00 Depradha Pineda(*Bid*) PO BID CHAU Donepezil HCl 10 mg 01/09/17 22:00 Aricept PO HS CHAU Lorazepam 0.5 mg 01/08/17 23:35 Ativan PO 01/22/17 23:36 HS PRN Insomnia Lorazepam 0.5 mg 01/08/17 23:35 Ativan PO 01/22/17 23:36 Q6 PRN Anixety/Agitation Magnesium Hydroxide 30 ml 01/08/17 23:35 Milk Of Magnesia PO HS PRN Constipation Memantine 5 mg 01/09/17 09:00 Namenda PO DAILY CHAU Metoprolol Succinate 100 mg 01/09/17 09:00 Toprol Xl PO DAILY CHAU Mirtazapine 15 mg 01/09/17 22:00 Remeron PO HS CHAU Nicotine 1 patch 01/09/17 09:00 Nicoderm Cq TD DAILY CHUA Fluticasone/Salmeterol 1 puff 01/09/17 09:00 Advair Diskus 100/50 IH Q12 CHAU Past Psychiatric History - Past Psychiatric History Previous Treatment History: Inpatient Pertinent Medical Hx (Current Medical&Sleep Prob, Allergies): Allergies Allergy/AdvReac Type Severity Reaction Status Date / Time Penicillins Allergy RASH Verified 11/29/16 14:47 Divalproex [Depakote DR(*BID*)] 250 mg PO DAILY #30 tcp 12/04/16 Donepezil [Aricept] 10 mg PO HS #30 tab 12/04/16 Fluticasone/Salmeterol 100/50 [Advair Diskus 100/50] 1 puff IH Q12 #1 puff 12/04 Ipratropium 0.02% [Atrovent] 0.5 mg IH RQ6 PRN #1 12/04/16 Memantine [Namenda] 5 mg PO DAILY #30 tab 12/04/16 Metoprolol Succinate [Toprol XL] 100 mg PO DAILY #30 12/04/16 Mirtazapine [Remeron] 15 mg PO HS #30 tab 12/04/16 Nicotine 7 mg/24 hr [Nicoderm CQ] 1 patch TD DAILY #30 patch 12/04/16 Albuterol Sulfate [Proair Hfa] 2 puff IH Q4H PRN 01/08/17 Divalproex [Depakote ER] 500 mg PO QPM 01/08/17 Review of Systems - Psychiatric Psychiatric: As Per HPI, Behavioral Changes, Confusion, Difficulty Concentrating , Homicidal Ideation, Irritability, Memory Loss, Mood Swings Mental Status Examination - Personal Presentation Personal Presentation: Looks stated age - Affect Affect: Constricted (Irritable) - Motor Activity Motor Activity: Calm - Reliability in Providing Information Reliability in Providing Information: Poor, due to cognitve impairment - Speech Speech: Tangential, Coherent - Mood Mood: Neutral - Formal Thought Process Formal Thought Process: Loosening of associations - Hallucinations/Delusions Additional comments: Denies AH/VH/paranoia/delusions - Obsessions/Compulsions Obsessions: No Compulsions: No - Cognitive Functions Orientation: Person Sensorium: Alert Attention/Concentration: Easily distracted Estimate of Intelligence: Average (Prior to dementia, intelligence was average) Judgement: Imparied, as evidence by: Lack of insight into illness Memory: Recent impaired, as evidence by: Inability to recall events of the day, Recent imparied as evidence by:Inability to complete 3/3 object recall, Remote impaired as evidenced by: Inability to recall sig life events, Remote impaired as evidenced by: Inability to recall historical events - Risk Risk: Diminished functioning - Strength & Assets Inventory Strength & Assets Inventory: Family support - Limitations Limitations: Decreased memory, recent DSM 5 DX - DSM 5 DSM 5 Diagnosis: Dementia with behavioral disturbance, Mood disorder unspecified - Recommended/Plan of Treatment Treatment Recommendations and Plan of Treatment: Dementia with behavioral disturbance, Mood disorder unspecified -Admit to geropsychiatry unit -Individual and group therapy -Increase Depakote to 500 mg PO BID, check VPA level -Consider starting an antipsychotic -Obtain collateral history from family -Disposition planning -Medicine consult for chronic hypertension -Nicotine patch and gum PRN Projected ELOS: 3-7 days Discharge Plan and Discharge Criteria: Discharge when psychiatrically stable - Smoking Cessation Smoking Cessation Initiated: Yes
[2017-01-09] MEDS ORDERED: NICOTINE 2 MG GUM PO PRN (08:19)
[2017-01-09 08:32] LABS: THYROID STIMULATING HORMONE 2.02 mIU/ML (0.46-4.68)
[2017-01-09] MEDS: Fluticasone-Salmeterol 100-50mcg Diskus IH SCH ×2 (08:55→22:00)
[2017-01-09] MEDS ORDERED: Metoprolol Succinate 100 mg XL Tab PO SCH (09:00)
[2017-01-09] MEDS ORDERED: Divalproex 500 mg DR(BID formulation) PO SCH (09:00)
[2017-01-09 12:32] LABS: FOLATE 11.9 ng/mL
[2017-01-09] MEDS: Divalproex 250 mg DR(BID formulation) PO SCH (17:20)
--- NOTE | 2017-01-09 23:44 | CARD ---
APPROVED REPORT EKG Measurement Heart [id number] <Conclusion> Sinus bradycardia Left ventricular hypertrophy with repolarization abnormality Abnormal ECG
--- NOTE | 2017-01-10 08:23 | CP.PCM.HP ---
History of Present Illness - History of Present Illness History of Present Illness: pt admitted for aggressive behavior at home related to h/o dementia. at present calm and cooperative. no f/c, n/v/d. no complaints. alert to person and place. Present on Admission - Present on Admission Any Indicators Present on Admission: No Review of Systems - Psychiatric Psychiatric: As Per HPI, Behavioral Changes Past Patient History - Infectious Disease Hx of Infectious Diseases: None - Tetanus Immunizations Tetanus Immunization: Unknown - Past Medical History & Family History Past Medical History?: Yes - Past Social History Smoking Status: Unknown If Ever Smoked - CARDIAC Hx Cardiac Disorders: No Hx Hypertension: Yes - PULMONARY Hx Tuberculosis: No - NEUROLOGICAL HX Cerebrovascular Accident: No Hx Seizures: No - RENAL Hx Chronic Kidney Disease: No - ENDOCRINE/METABOLIC Hx Endocrine Disorders: No - HEMATOLOGICAL/ONCOLOGICAL Hx Cancer: No Hx Human Immunodeficiency Virus (HIV): No - INTEGUMENTARY Hx Dermatological Problems: No - MUSCULOSKELETAL/RHEUMATOLOGICAL Hx Falls: No - GASTROINTESTINAL Hx Gastrointestinal Disorders: No - GENITOURINARY/GYNECOLOGICAL Hx Sexually Transmitted Disorders: No - PSYCHIATRIC Hx Substance Use: No - SURGICAL HISTORY Hx Cholecystectomy: Yes - ANESTHESIA Hx Anesthesia: Yes Hx Anesthesia Reactions: No Hx Malignant Hyperthermia: No Meds Allergies/Adverse Reactions: Allergies Allergy/AdvReac Type Severity Reaction Status Date / Time Penicillins Allergy RASH Verified 11/29/16 14:47 Physical Exam - Constitutional Appears: Well, Non-toxic, No Acute Distress - Head Exam Head Exam: ATRAUMATIC, NORMAL INSPECTION, NORMOCEPHALIC - Eye Exam Eye Exam: EOMI, Normal appearance, PERRL Pupil Exam: NORMAL ACCOMODATION, PERRL - ENT Exam ENT Exam: Mucous Membranes Moist, Normal Exam - Neck Exam Neck exam: Positive for: Normal Inspection - Respiratory Exam Respiratory Exam: Clear to Auscultation Bilateral, NORMAL BREATHING PATTERN - Cardiovascular Exam Cardiovascular Exam: REGULAR RHYTHM, RRR, +S1, +S2 - GI/Abdominal Exam GI & Abdominal Exam: Normal Bowel Sounds, Soft. absent: Tenderness - Extremities Exam Extremities exam: Positive for: full ROM, normal capillary refill, normal inspection, pedal pulses present - Back Exam Back exam: NORMAL INSPECTION - Neurological Exam Neurological exam: Alert, CN II-XII Intact, Normal Gait, Oriented x3, Reflexes Normal - Psychiatric Exam Psychiatric exam: Normal Affect, Normal Mood - Skin Skin Exam: Dry, Intact, Normal Color, Warm Results - Vital Signs Recent Vital Signs: Last Vital Signs Temp 97.2 F L 01/10/17 06:00 Pulse 62 01/10/17 06:00 Resp 19 01/10/17 06:00 BP 133/59 L 01/10/17 06:00 Pulse Ox 100 01/08/17 19:06 - Labs Result Diagrams: 01/08/17 14:55 01/09/17 07:22 Labs: Laboratory Results - last 24 hr 01/09/17 01/09/17 01/09/17 07:22 07:22 07:22 Hemoglobin A1c 6.0 Ferritin 57.4 Vitamin B12 496 Folate 11.9 TSH 3rd Generation 2.02 RPR Nonreactive Assessment & Plan (1) DVT (deep venous thrombosis) Assessment and Plan: ambulation Status: Acute (2) Dementia with behavioral disturbance Assessment and Plan: meds, thearpies and placement as per psych team Status: Acute Decision To Admit - Pt Status Changed To: Hospital Disposition Of: Inpatient - Admit Certification Admit to Inpatient:: After my assessment, the patient will require hospitalization for at least two midnights. This is because of the severity of symptoms shown, intensity of services needed, and/or the medical risk in this patient being treated as an outpatient. - . Bed Request Type: [facility] Admitting Physician: Roman Mace
[2017-01-10] MEDS ORDERED: Albuterol HFA 90 mcg/actuation (8 g) IH PRN (08:25)
[2017-01-10] MEDS ORDERED: Ipratropium 0.02% Inhal Soln (0.5 mg/2.5 ml) UD IH PRN (08:25)
[2017-01-10] MEDS: Fluticasone-Salmeterol 100-50mcg Diskus IH SCH ×2 (09:09→21:09)
[2017-01-10] MEDS: Metoprolol Succinate 100 mg XL Tab PO SCH (09:11)
[2017-01-10] MEDS: Divalproex 250 mg DR(BID formulation) PO SCH (09:11)
[2017-01-10] MEDS: Divalproex 500 mg DR(BID formulation) PO SCH (16:39)
--- NOTE | 2017-01-10 20:42 | PCM.PYCHPN ---
Psychiatric Progress Note - Psychiatric Progress Note Patient seen today, length of contact: chart reviewed case discussed with team Patient Chief Complaint: pt defers knowing reason for admission, notes reflect pt is confused, has hx. of dementia, repeated admissions from halfway to [facility], staff report pt has been adherent with treatment, continues to require redirection and care Problems Identified/Issues Discussed: alteration in cognition, alteration in self care, behavioral changes Medical Problems: per chart, pt was evaluated by hcp /pmd today for completion h and p Diagnostic Results: per psychiatry per medicine per nursing per social work DSM 5 Symptoms Update: alteration in cognition, self care , and behavioral changes Medication Change: No Medical Record Reviewed: Yes Consults ordered or reviewed: pt seen by charles vasquez dnp/[facility] today Mental Status Examination - Cognitive Function Orientation: Person Attention: Poor Concentration: Poor Association: Loose Fund of Knowledge: Poor Decription of patient's judgement and insights: impaired - Mood Mood: Neutral - Affect Affect: Constricted (Irritable) - Speech Speech: Soft - Formal Thought Process Formal Thought Process: Loosening of associations - Homicidal Ideation Homicidal Ideation: Yes Goal/Treatment Plan - Goal/Treatment Plan Need for Continued Stay: Remain at risks for inpatient hospitalization, Failed transitioning Progress Toward Problem(s) and Goals/Treatment Plan: inpt milieu vital signs/clinical assessment per protocol and per status adjust meds per clinical status team has been and will continue to be in contact with POA discharge planning in progress Estimated Date of D/C: 01/17/17 - Smoking Cessation Smoking Cessation Initiated: Yes
--- NOTE | 2017-01-11 08:27 | PCM.PYCHPN ---
Psychiatric Progress Note - Psychiatric Progress Note Patient seen today, length of contact: Patient evaluated, chart reviewed, case discussed w/ team, 35 min Patient Chief Complaint: "I'm okay" Problems Identified/Issues Discussed: Patient continues to be disoriented to location/situation/time, but this is her baseline due to chronic dementia. She is irritable at times, but has not had any periods of aggression or agitation. Denies depression/anxiety/AH/VH. Diagnostic Results: VPA 58.1 on 01/10/17 Medication Change: Yes (Increase Seroquel to 25 mg PO BID) Medical Record Reviewed: Yes Mental Status Examination - Cognitive Function Orientation: Person Memory: Impaired Attention: Poor Concentration: Poor Association: Loose Fund of Knowledge: Poor Decription of patient's judgement and insights: Chronic poor I/J due to dementia - Mood Mood: Neutral - Affect Affect: Broad - Speech Speech: Soft - Formal Thought Process Formal Thought Process: Loosening of associations Psychotic Thoughts and Behaviors: NO AH/VH/paranoia/delusions - Suicidal Ideation Suicidal Ideation: No - Homicidal Ideation Homicidal Ideation: No Goal/Treatment Plan - Goal/Treatment Plan Need for Continued Stay: Remain at risks for inpatient hospitalization, Failed transitioning Progress Toward Problem(s) and Goals/Treatment Plan: Dementia with behavioral disturbance, Mood disorder unspecified; patient is improving clinically, likely discharge to home tomorrow w/ daughter. -Individual and group therapy -Continue Depakote 250 mg PO AM/ 500 mg PO Daily @1700; VPA 58.1 on 01/10/17 -Increase Seroquel to 25 mg PO BID -Case discussed w/ POA -Medicine consult appreciated -Disposition planning -Nicotine patch and gum PRN Estimated Date of D/C: 01/12/17 - Smoking Cessation Smoking Cessation Initiated: Yes
[2017-01-11] MEDS: Metoprolol Succinate 100 mg XL Tab PO SCH (08:32)
[2017-01-11] MEDS: Divalproex 250 mg DR(BID formulation) PO SCH (08:35)
[2017-01-11] MEDS: Fluticasone-Salmeterol 100-50mcg Diskus IH SCH ×2 (08:36→21:02)
[2017-01-11 15:48] VITALS: RESP 20
[2017-01-11] MEDS: Divalproex 500 mg DR(BID formulation) PO SCH (16:27)
[2017-01-12 05:38] VITALS: BP 161/79; PULSE 52; TEMP 97.3
[2017-01-12] MEDS: Fluticasone-Salmeterol 100-50mcg Diskus IH SCH (08:14)
[2017-01-12] MEDS: Divalproex 500 mg DR(BID formulation) PO SCH (08:15)
[2017-01-12] MEDS: Metoprolol Succinate 100 mg XL Tab PO SCH (08:17)
[2017-01-12] MEDS: Divalproex 250 mg DR(BID formulation) PO SCH (08:20)
--- NOTE | 2017-01-12 08:48 | PCM.PYCHDC ---
Mental Status Examination - Mental Status Examination Orientation: Person Memory: Impaired Mood: Neutral Affect: Broad Speech: Appropriate Attention: Poor Concentration: Poor Association: Loose Fund of Knowledge: Poor Formal Thought Process: Loosening of associations Description of patient's judgement and insight: Chronic poor I/J due to dementia Psychotic Thoughts and Behaviors: NO AH/VH/paranoia/delusions Suicidal Ideation: No Current Homicidal Ideation?: No Discharge Summary - Discharge Note Reason for Hospitalization: Patient is a poor historian due to dementia, history obtained from the chart HPI: 76 year old female w/ history of dementia w/ behavioral disturbances, most recently admitted to [facility] from 11/29/16-12/04/16, presents with worsening aggression. She was admitted to the hospital in November and upon leaving [facility] she was discharged to a detention. Patient was sent back to the ED after two hours of being at the detention due to agitation and being upset by her new unknown environment. Patient's daughter stated that the patient is still exhibiting these aggressive behaviors. Patient is diagnosed with Dementia and has been hospitalized three times this year at [facility] for her illness. Patient's daughter stated that the patient is sleeping at night and is eating well. Patient's daughter stated that her eating is well especially due to her medication. It has increased her appetite at this time. In the ER, patient reported feeling homicidal but did not state a plan. Patient currently denies any ideation to harm herself or others. Patient's daughter stated that a lot of her agitation comes from when the patient can't smoke. Patient can be verbally aggressive and can destroy property as well. Patient's daughter Marta Brooks [phone] stated that the patient has been regressing since losing her apartment in September. She stated that the patient is confrontational at home and also aggressive. Patient's daughter reported that the patient is stubborn and wants to do things her way. Patient's daughter would like for her to be admitted to the hospital, as she feels she needs hospitalization at this time. Patient is a poor historian due to dementia and does not recall what happened. Patient is denying acute depression/anxiety/psychosis/SI/HI. POA consented to admission to psychiatry unit. PPHx: Patient has been admitted to the [facility] unit three times in 2017. She has been admitted on 06/30/16-07/04/16, 11/13/16-11/29/16, 11/29/16-12/04/16. On Remeron 30 mg PO Daily, Depakote 250 AM/ 500 HS, Aricept 10 mg PO HS, Namenda 5 mg PO Daily PMHx: Dementia, Depression, HTN PSHx: None ALL: PCN Social Hx: (+) Tobacco 3 to 4 cigarettes per day, NO alcohol, NO illicit drugs; previously lives with granddaughter/daughter. Patient denied any legal history. Family Hx: No known family hx of mental illness Consultations:: List each consultation separately and include: 1. Reason for request. 2. Findings. 3. Follow-up Consultations: Medicine consult Summary of Hospital Course include:: 1. Description of specific treatment plan utilized for patients during their course of treatmen. 2. Summarize the time- course for resolution of acute symptoms and/or regressed behaviors. 3. Describe issues identified and worked on during hospitalization. 4. Describe medication utilized. 5. Describe medical problems identified and treated. 6. Reassessment of suicide risk Summary of Hospital Course: Patient was admitted to the geropsychiatry unit. Individual and group therapy were provided. Patient was stabilized on Depakote 250 mg PO AM/ 500 mg PO Daily @1700 and Seroquel 25 mg PO BID. She was continued on Aricept and Namenda. Psychoeducation provided to the patient's daughter/ POA. APS was called because the daughter stated she leaves her mother alone at home, which is inadvisable considering the severity of the patient's dementia. - Diagnosis (1) Dementia with behavioral disturbance Current Visit: Yes Status: Acute - Final Diagnosis (DSM 5) Condition upon Discharge: STABLE DSM 5: Dementia with behavioral disturbance, Mood disorder unspecified Disposition: HOME/ ROUTINE Follow-up Treatment Plan: Dementia with behavioral disturbance, Mood disorder unspecified; patient is psychiatrically stable to return home. Patient's daughter/POA is unwilling to put the patient in a detention at this time. -Continue Depakote 250 mg PO AM/ 500 mg PO Daily @1700; VPA 58.1 on 01/10/17 -Continue Seroquel 25 mg PO BID -Continue Remeron 15 mg PO HS -Case discussed w/ POA -Medicine consult appreciated -Disposition planning -Continue Aricept 10 mg PO HS and Namenda 5 mg PO Daily Prescriptions/Medication Reconciliation: Divalproex [Depakote DR(*BID*)] 250 mg PO DAILY #30 tcp Divalproex [Depakote DR(*BID*)] 500 mg PO DAILY@1700 #30 tcp Donepezil [Aricept] 10 mg PO HS #30 tab Memantine [Namenda] 5 mg PO DAILY #30 tab Mirtazapine [Remeron] 15 mg PO HS #30 tab QUEtiapine [Seroquel] 25 mg PO BID #60 tab - Smoking Cessation Smoking Cessation Medication prescribed: Yes - Antipsychotic Medications Pt discharged on 2 or more routine antipsychotic medications: No
== END 2017-01-12 13:25 | disposition home or self-care (01) | DRG 57 ==
LOC: H.ER 13:27 → H.ERHOLD 17:46 → H.STEP 20:14
PROVIDERS: ADMIT Psychiatry & Neurology Psychiatry; ATTEND Psychiatry & Neurology Psychiatry
PROC: GZ3ZZZZ Medication Management (ICD-10-PCS; principal; 2017-01-08)
PROC: GZHZZZZ Group Psychotherapy (ICD-10-PCS; 2017-01-08)
PROC: GZ56ZZZ Individual Psychotherapy, Supportive (ICD-10-PCS; 2017-01-08)
DX: G30.9 Alzheimer's disease, unspecified (principal); F02.81 Dementia in other diseases classified elsewhere, unspecified severity, with behavioral disturbance; I10 Essential (primary) hypertension; F41.9 Anxiety disorder, unspecified; J45.909 Unspecified asthma, uncomplicated; Z79.899 Other long term (current) drug therapy; F17.210 Nicotine dependence, cigarettes, uncomplicated; Z90.49 Acquired absence of other specified parts of digestive tract